=== PATIENT | male | born 1945 | race Caucasian/White ===

== ENCOUNTER 2016-09-21 09:45 | Outpatient (CLI) | payer MEDICARE, OTHER ==
[2016-09-21 14:09] LABS: EOSINOPHILS # (AUTO) 0.2 10^3/uL (0.0-0.7); LYMPHOCYTES # (AUTO) 1.4 10^3/uL (1.5-3.5); NEUTROPHILS # (AUTO) 4.1 10^3/uL (1.5-6.6)
[2016-09-21 14:12] LABS: BASOPHILS # (AUTO) 0.1 10^3/uL (0.0-0.1); BASOPHILS % (AUTO) 0.8 %; EOSINOPHILS % (AUTO) 2.8 %; HCT - HEMATOCRIT 46.8 % (42.0-52.0); HGB - HEMOGLOBIN 16.1 g/dL (14.0-18.0); LYMPHOCYTES % (AUTO) 20.2 %; MEAN CORPUSCULAR HEMOGLOBIN 30.7 pg (27.0-31.0); MEAN CORPUSCULAR HGB CONC 34.3 g/dL (32.0-36.0); MEAN CORPUSCULAR VOLUME 89.6 fL (80.0-94.0); MEAN PLATELET VOLUME 9.2 fL (7.4-11.4); MONOCYTES # (AUTO) 1.1 10^3/uL (0.0-1.0); MONOCYTES % (AUTO) 15.5 %; NEUTROPHILS % (AUTO) 60.7 %; NUCLEATED RED BLOOD CELLS AUTO 0.1 /100WBC; RED BLOOD COUNT 5.22 10^6/uL (4.70-6.10); UNCORRECTED WHITE BLOOD COUNT 6.8 x10^3/uL; WHITE BLOOD COUNT 6.8 x10^3/uL (4.8-10.8)
[2016-09-21 14:21] LABS: ALBUMIN/GLOBULIN RATIO 1.4 (1.0-2.2); BILIRUBIN,TOTAL 0.7 mg/dL (0.2-1.0); CALCIUM 9.6 mg/dL (8.5-10.3); CREATININE 1.1 mg/dL (0.6-1.2); POTASSIUM 3.9 mmol/L (3.5-5.0); TOTAL PROTEIN 6.7 g/dL (6.7-8.2)
== END 2016-09-21 09:46 | disposition home or self-care (01) ==
LOC: LAB.WCP 09:45
PROVIDERS: ATTEND Family Medicine
DX: M17.0 Bilateral primary osteoarthritis of knee (principal); I48.91 Unspecified atrial fibrillation
CPT/HCPCS: 36415; 80053; 85025; 87640

== ENCOUNTER 2016-09-23 12:37 | Outpatient (CLI) | payer MEDICARE, OTHER | END 2016-09-23 12:38 | disposition home or self-care (01) | LOC: DI 12:37 | PROVIDERS: ATTEND Family Medicine | DX: I48.91 Unspecified atrial fibrillation (principal); I51.7 Cardiomegaly; I35.1 Nonrheumatic aortic (valve) insufficiency | CPT/HCPCS: 93306 ==

== ENCOUNTER 2016-11-21 08:59 | Inpatient (IN) | payer MEDICARE, OTHER ==
[~2016-11-21 08:59] MED LIST: ceFAZolin 2 GM/50 ML 50 ML IV ONE
[2016-11-21] MEDS ORDERED: LACTATED RINGERS 1,000 ML IV ONE ×3 (09:30→13:56)
[2016-11-21] MEDS ORDERED: EPINEPHrine 1 MG/ML AMP IVP ONE (11:06)
[2016-11-21] MEDS ORDERED: ROPIVACAINE 0.5% PF 20 ML AMPULE SUBQ ONE (11:06)
[2016-11-21] MEDS ORDERED: KETOROLAC 15 MG/ML VIAL IVP ONE (11:06)
[2016-11-21] MEDS ORDERED: MORPHINE PF 5 MG/10 ML AMP SUBQ ONE (11:06)
[2016-11-21] MEDS ORDERED: BUPIVACAINE 0.5% PF 30 ML VIAL SUBQ ONE (11:08)
[2016-11-21] MEDS ORDERED: TRANEXAMIC ACID 1,000 MG/10 ML VIAL IV ONE (11:10)
[2016-11-21] MEDS ORDERED: ONDANSETRON 4 MG/2 ML VIAL IVP ONE (11:10)
[2016-11-21] MEDS ORDERED: MIDAZOLAM 2 MG/2 ML VIAL IVP ONE (11:10)
[2016-11-21] MEDS ORDERED: DEXAMETHASONE 4 MG/ML VIAL IVP ONE (11:10)
[2016-11-21] MEDS ORDERED: ACETAMINOPHEN 1,000 MG/100 ML 100 ML IV ONE (11:10)
[2016-11-21] MEDS ORDERED: fentaNYL 100 MCG/2 ML VIAL IVP ONE (11:10)
[2016-11-21] MEDS ORDERED: PROPOFOL 200 MG/20 ML VIAL IVP ONE (11:10)
--- NOTE | 2016-11-21 12:23 | OPERATIVE REPORT ---
Operative Report - General Admit Date: 11/21/16 Procedure Date: 11/21/16 Planned Procedure: Left TKA Pre-Op Diagnosis: DJD left knee Procedure Performed: Left Total Knee Arthroplasty Post Op Diagnosis: same - Procedure Note Primary Surgeon: thiago Anesthesia Provider: Jean Anesthesia Technique: Spinal Estimated Blood Loss (mL): 35 Drain/Tube Type: Hemovac
[2016-11-21] MEDS ORDERED: PROCHLORPERAZINE 10 MG/2 ML VIAL IVP PRN (12:24)
[2016-11-21] MEDS ORDERED: SODIUM CHLORIDE FLUSH 0.9% 10 ML SYRINGE IVP PRN (12:24)
[2016-11-21] MEDS ORDERED: ACETAMINOPHEN 325 MG TABLET PO PRN (12:24)
[2016-11-21] MEDS ORDERED: ONDANSETRON 4 MG/2 ML VIAL IVP PRN (12:24)
--- NOTE | 2016-11-21 13:08 | XRAY Report ---
TWO-VIEW LEFT KNEE: 11/21/2016 CLINICAL INDICATION: Postop. FINDINGS: Frontal and lateral views of the left knee demonstrate a left total knee replacement in pl [address]. Subcutaneous gas and suprapatellar drain are noted. There is no evidence of acute fracture or immediate hardware complication. IMPRESSION: EXPECTED POSTOPERATIVE APPEARANCE OF LEFT KNEE REPLACEMENT. JOB #: [id number] EXT JOB #:[id number]
--- NOTE | 2016-11-21 13:35 | OPERATIVE REPORT ---
DATE OF SURGERY: 11/21/2016 00:00:00 PREOPERATIVE DIAGNOSIS: Left knee osteoarthritis. POSTOPERATIVE DIAGNOSIS: Left knee osteoarthritis. NAME OF PROCEDURE: Left total knee replacement arthroplasty. SURGEON: Lindsay Robertson MD ANESTHESIA: Lilly, Antonio Pena. INDICATIONS FOR SURGERY: The patient is a 71-year-old male with progressive osteoarthritis involving both knees but presently more painful in the left than the right, and patient has failed conservative care and desires total knee arthroplasty. DESCRIPTION OF OPERATIVE PROCEDURE: The patient was taken to the operating room. He was given a spina l anesthetic. He was placed in a supine position on the OR table with padding in place and bolsters t o position his knee. A tourniquet was placed high on his thigh. After sterile prep and drape, a timeo ut was held, and then, the tourniquet was inflated to 300 mmHg. The patient's knee was approached thr ough a curved medial incision and a medial parapatellar incision with reflection of the patella later ally and exposure of the distal femur and tibia where osteophytes were removed from both surfaces, th e ACL excised and medial and lateral meniscus removed. The patient's knee was prepared for distal fem oral cut by placing an intramedullary dimitris and the cutting block and then cutting the distal femur. Fo llowing this, a sizing block was applied, and the patient sized to a size 10 femoral Persona componen t. A 4-in-1 cutting block was applied and the cuts made. The tibia was then exposed, and the external alignment tower was applied and adjusted for overall alignment for slope and for rotation. The cut w as made on the proximal tibia with retractors positioned to protect soft tissues. Following this, the proximal tibia was sized for implantation of a Persona stem size F tibial tray from which a trial re duction was performed, choosing a 13 mm height poly. The patella was measured, resected and sized for a patellar component of 32 mm diameter 8.5 mm thickness medialized. All trial components were insert ed, and the knee was stable through a range of motion, and the patella tracked well. Components were removed, and the implantable Persona knee components were brought into the field, implanting with leo ent first the tibial tray, the stemmed size F tibial tray, followed by insertion of the Persona cruci ate retaining femur standard size 10 left and then finally inserting the poly insert, which was a med ial congruent 13 mm height insert, and then, the patella was cemented in place. All excess cement was removed, and the cement was allowed to harden. The patient's knee remained very stable, and the knee was flushed thoroughly. Closure was over a drain utilizing FiberWire in the retinaculum, Vicryl laye rs in subcutaneous tissue and Monocryl closure of skin. Sterile dressings were applied. The patient w as placed onto a hospital bed and taken to the recovery room in stable condition. ESTIMATED BLOOD LOSS: Minimal. COMPLICATIONS: None. SPONGE AND NEEDLE COUNTS: Correct. JOB #: [id number] EXT JOB #:[id number]
[2016-11-21] MEDS: WARFARIN 5 MG TABLET PO SCH (14:40)
[2016-11-21] MEDS: SODIUM CHLORIDE 0.45% 1,000 ML IV SCH (14:40)
[2016-11-21] MEDS: SODIUM CHLORIDE FLUSH 0.9% 10 ML SYRINGE IVP SCH ×2 (14:41→21:35)
[2016-11-21] MEDS: ceFAZolin 2 GM/50 ML 50 ML IV SCH (15:42)
[2016-11-21] MEDS: oxyCOD/ACETAMIN 5 MG/325 MG TABLET PO PRN ×2 (18:01→21:33)
[2016-11-21] MEDS: METOPROLOL TARTRATE 25 MG TABLET PO SCH (21:31)
[2016-11-22] MEDS: ceFAZolin 2 GM/50 ML 50 ML IV SCH (00:25)
[2016-11-22] MEDS: SODIUM CHLORIDE 0.45% 1,000 ML IV SCH (01:23)
[2016-11-22] MEDS: oxyCOD/ACETAMIN 5 MG/325 MG TABLET PO PRN ×6 (01:23→21:33)
[2016-11-22] MEDS: SODIUM CHLORIDE FLUSH 0.9% 10 ML SYRINGE IVP SCH ×3 (05:24→20:05)
[2016-11-22 05:36] LABS: CALCIUM 8.5 mg/dL (8.5-10.3); CREATININE 1.1 mg/dL (0.6-1.2); POTASSIUM 4.3 mmol/L (3.5-5.0)
[2016-11-22 05:43] LABS: HCT - HEMATOCRIT 42.8 % (42.0-52.0); HGB - HEMOGLOBIN 14.4 g/dL (14.0-18.0)
--- NOTE | 2016-11-22 07:35 | PROVIDER PROGRESS NOTE ---
Subjective - General Admit Date: 11/21/16 Procedure Date: 11/21/16 Post Op Days: 1 Procedure Performed: Left Total Knee Arthroplasty - Review of Systems Wound/Incisions: positive: Dressing dry and intact Drain Type: Hemovac D/c General: positive: No symptoms Psychiatric: positive: No symptoms Objective - Patient Data Reviewed Vital Signs: Yes Vital Signs: Vital Signs x48h Temp Pulse Resp BP Pulse Ox 11/22/16 07:23 36.8 C 63 18 138/78 H 94 11/22/16 04:40 36.6 C 70 16 127/70 94 11/21/16 23:45 36.9 C 74 18 130/68 94 Weight: Weight 11/20/16 11/21/16 11/22/16 23:59 23:59 23:59 Weight (kg) 120 kg Intake & Output: Intake and Output Totals x24h 11/20/16 11/21/16 11/22/16 23:59 23:59 23:59 Intake Total 3476 1129 Output Total 340 560 Balance 3136 569 - Lab Results Lab Results: 11/22/16 05:20 11/22/16 05:20 Other Lab Results: Lab Results x24hrs 11/22/16 11/22/16 11/21/16 Range/Units 05:20 05:20 10:14 Hgb 14.4 (14.0-18.0) g/dL Hct 42.8 (42.0-52.0) % Whole Blood INR 1.1 (0.8-1.2) Sodium 136 (135-145) mmol/L Potassium 4.3 (3.5-5.0) mmol/L Chloride 101 (101-111) mmol/L Carbon Dioxide 27 (21-32) mmol/L Anion Gap 8.0 (6-13) BUN 20 (6-20) mg/dL Creatinine 1.1 (0.6-1.2) mg/dL Estimated GFR (MDRD) 66 L (>89) Glucose 136 H (70-100) mg/dL Calcium 8.5 (8.5-10.3) mg/dL - Imaging Results Radiology Imaging: positive: EMP read indepedently - Current Medications Current Medications: Current Medications Generic Name Dose Route Start Last Admin Trade Name Freq PRN Reason Stop Dose Admin Sodium Chloride 1,000 mls @ 100 mls/hr 11/21/16 13:00 11/22/16 01:23 Normal Saline 0.45% IV 100 mls/hr .Q10H HENRY Administration Metoprolol Tartrate 12.5 mg 11/21/16 21:00 11/21/16 21:31 Lopressor PO 12.5 mg BID HENRY Administration Oxycodone/Acetaminophen 1 tab 11/21/16 12:24 11/22/16 05:24 Percocet 5 Mg/325 Mg PO 1 tab Q4HR PRN Administration PAIN Sodium Chloride 10 ml 11/21/16 14:00 11/22/16 05:24 Normal Saline Flush 0.9% IVP Not Given Q8HR HENRY Warfarin Sodium 5 mg 11/21/16 13:00 11/21/16 14:40 Coumadin PO 5 mg DAILY HENRY Administration - Physical Exam Wound/Incisions: positive: Dressing dry and intact Extremities: positive: Joint swelling Neurologic/Psychiatric: positive: Motor nml, Sensation nml, Mood/affect nml Impression/Plan - Problem List Problem List: POD #1 Pt is doing well with good pain control Plan to advance with PT today.
[2016-11-22] MEDS ORDERED: SODIUM CHLORIDE 0.45% 1,000 ML IV SCH (08:34)
[2016-11-22] MEDS: ATORVASTATIN 10 MG TABLET PO SCH (08:54)
[2016-11-22] MEDS: WARFARIN 5 MG TABLET PO SCH (08:55)
[2016-11-22] MEDS: hydroCHLOROthiazide 25 MG TABLET PO SCH (08:55)
[2016-11-22] MEDS: METOPROLOL TARTRATE 25 MG TABLET PO SCH ×2 (08:55→21:34)
[2016-11-22] MEDS: LISINOPRIL 20 MG TABLET PO SCH (09:07)
[2016-11-22] MEDS: ENOXAPARIN 40 MG/0.4 ML SYRINGE SUBQ SCH (09:07)
[2016-11-22] MEDS ORDERED: POLYETHYLENE GLYCOL 3350 17 GM PACKET ONE (16:54)
[2016-11-22] MEDS: HYDROmorphone 1 MG/ML SYRINGE IVP PRN (20:05)
[2016-11-23] MEDS: HYDROmorphone 1 MG/ML SYRINGE IVP PRN ×2 (01:21→11:29)
[2016-11-23] MEDS: oxyCOD/ACETAMIN 5 MG/325 MG TABLET PO PRN ×4 (02:21→17:25)
[2016-11-23 06:02] LABS: INR 1.5 (0.8-1.2); PT - PROTHROMBIN TIME 16.8 secs (9.9-12.6)
[2016-11-23] MEDS: SODIUM CHLORIDE FLUSH 0.9% 10 ML SYRINGE IVP SCH ×3 (06:14→20:25)
[2016-11-23] MEDS: ATORVASTATIN 10 MG TABLET PO SCH (08:27)
[2016-11-23] MEDS: ENOXAPARIN 40 MG/0.4 ML SYRINGE SUBQ SCH (08:27)
[2016-11-23] MEDS: METOPROLOL TARTRATE 25 MG TABLET PO SCH ×2 (08:28→20:28)
[2016-11-23] MEDS: hydroCHLOROthiazide 25 MG TABLET PO SCH (08:28)
[2016-11-23] MEDS: WARFARIN 5 MG TABLET PO SCH (08:28)
[2016-11-23] MEDS: LISINOPRIL 20 MG TABLET PO SCH ×2 (08:28→20:23)
--- NOTE | 2016-11-23 10:50 | PROVIDER PROGRESS NOTE ---
Subjective - General Admit Date: 11/21/16 Procedure Date: 11/21/16 Post Op Days: 2 Procedure Performed: Left Total Knee Arthroplasty - Review of Systems Wound/Incisions: positive: Dressing dry and intact Drain Type: Hemovac D/c General: positive: No symptoms Psychiatric: positive: No symptoms Objective - Patient Data Reviewed Vital Signs: Yes Vital Signs: Vital Signs x48h Temp Pulse Resp BP BP Pulse Ox 11/23/16 08:28 124/59 L 11/23/16 07:23 37.4 C 70 16 124/59 L 92 11/23/16 04:00 36.5 C 74 16 131/69 H 94 Weight: Weight 11/21/16 11/22/16 11/23/16 23:59 23:59 23:59 Weight (kg) 120 kg Intake & Output: Intake and Output Totals x24h 11/21/16 11/22/16 11/23/16 23:59 23:59 23:59 Intake Total 3476 2819 490 Output Total 340 2035 125 Balance 3136 784 365 - Lab Results Lab Results: 11/22/16 05:20 11/22/16 05:20 Other Lab Results: Lab Results x24hrs 11/23/16 Range/Units 05:36 PT 16.8 H (9.9-12.6) secs INR 1.5 H (0.8-1.2) - Current Medications Current Medications: Current Medications Generic Name Dose Route Start Last Admin Trade Name Freq PRN Reason Stop Dose Admin Atorvastatin Calcium 20 mg 11/22/16 09:00 11/23/16 08:27 Lipitor PO 20 mg DAILY HENRY Administration Enoxaparin Sodium 40 mg 11/22/16 09:00 11/23/16 08:27 Lovenox SUBQ 40 mg DAILY HENRY Administration Hydrochlorothiazide 25 mg 11/22/16 09:00 11/23/16 08:28 Hydrodiuril PO 25 mg DAILY HENRY Administration Hydromorphone HCl 1 mg 11/21/16 12:24 11/23/16 01:21 Dilaudid Inj IVP 1 mg Q2HR PRN Administration Breakthrough Pain Lisinopril 20 mg 11/22/16 09:00 11/23/16 08:28 Zestril PO 20 mg DAILY HENRY Administration Metoprolol Tartrate 12.5 mg 11/21/16 21:00 11/23/16 08:28 Lopressor PO 12.5 mg BID HENRY Administration Oxycodone/Acetaminophen 1 tab 11/21/16 12:24 11/23/16 10:15 Percocet 5 Mg/325 Mg PO 1 tab Q4HR PRN Administration PAIN Sodium Chloride 10 ml 11/21/16 14:00 11/23/16 06:14 Normal Saline Flush 0.9% IVP 10 ml Q8HR HENRY Administration Warfarin Sodium 5 mg 11/21/16 13:00 11/23/16 08:28 Coumadin PO 5 mg DAILY HENRY Administration
[2016-11-23] MEDS: HYDROmorphone 2 MG TABLET PO PRN ×2 (13:12→22:28)
[2016-11-23] MEDS: SENNA 8.6 MG TABLET PO SCH (20:24)
[2016-11-24] MEDS: oxyCOD/ACETAMIN 5 MG/325 MG TABLET PO PRN ×4 (01:50→19:35)
[2016-11-24] MEDS: SENNA 8.6 MG TABLET PO SCH ×5 (01:52→13:51)
[2016-11-24] MEDS: SODIUM CHLORIDE FLUSH 0.9% 10 ML SYRINGE IVP SCH ×3 (06:41→19:35)
[2016-11-24] MEDS ORDERED: BISACODYL 10 MG SUPP PR PRN (08:14)
[2016-11-24] MEDS ORDERED: SOAP SUDS ENEMA 1 EACH RC PRN (08:18)
--- NOTE | 2016-11-24 08:18 | PROVIDER PROGRESS NOTE ---
Subjective - General Admit Date: 11/21/16 Procedure Date: 11/21/16 Post Op Days: 3 Procedure Performed: Left Total Knee Arthroplasty - Review of Systems Wound/Incisions: positive: Dressing dry and intact Drain Type: Hemovac D/c General: positive: No symptoms Musculoskeletal: positive: Joint swelling Psychiatric: positive: No symptoms Objective - Patient Data Reviewed Vital Signs: Yes Vital Signs: Vital Signs x48h Temp Pulse Resp BP Pulse Ox 11/24/16 05:41 37.2 C 94 16 161/73 H 92 11/24/16 00:22 37.4 C 96 18 150/79 H 89 L Intake & Output: Intake and Output Totals x24h 11/22/16 11/23/16 11/24/16 23:59 23:59 23:59 Intake Total 2819 1430 Output Total 2035 1500 1200 Balance - Lab Results Lab Results: 11/22/16 05:20 11/22/16 05:20 - Current Medications Current Medications: Current Medications Generic Name Dose Route Start Last Admin Trade Name Wood PRN Reason Stop Dose Admin Atorvastatin Calcium 20 mg 11/22/16 09:00 11/23/16 08:27 Lipitor PO 20 mg DAILY HENRY Administration Hydrochlorothiazide 25 mg 11/22/16 09:00 11/23/16 08:28 Hydrodiuril PO 25 mg DAILY HENRY Administration Hydromorphone HCl 2 mg 11/23/16 12:59 11/23/16 22:28 Dilaudid PO 2 mg Q4HR PRN Administration Severe Pain Lisinopril 20 mg 11/22/16 09:00 11/23/16 20:23 Zestril PO 20 mg DAILY HENRY Administration Metoprolol Tartrate 12.5 mg 11/21/16 21:00 11/23/16 20:28 Lopressor PO 12.5 mg BID HENRY Administration Oxycodone/Acetaminophen 1 tab 11/21/16 12:24 11/24/16 01:50 Percocet 5 Mg/325 Mg PO 1 tab Q4HR PRN Administration PAIN Senna 17.2 - 25.8 mg 11/23/16 20:00 11/24/16 01:52 Senokot PO 11/24/16 14:01 17.2 mg Q6H HENRY Administration Sodium Chloride 10 ml 11/21/16 12:24 11/23/16 11:30 Normal Saline Flush 0.9% IVP 10 ml PRN PRN Administration NEEDED PER PROVIDER ORDERS Sodium Chloride 10 ml 11/21/16 14:00 11/24/16 06:41 Normal Saline Flush 0.9% IVP 10 ml Q8HR HENRY Administration Warfarin Sodium 5 mg 11/21/16 13:00 11/23/16 08:28 Coumadin PO 5 mg DAILY HENRY Administration - Physical Exam Wound/Incisions: positive: Dressing dry and intact Eyes Bilateral: positive: Other (fatigue, not painful but "wiped out") Skin: positive: No rash, Warm, Dry Impression/Plan - Problem List Problem List: POD #3 Pt is having complaints of being fatigued. Wound healing is OK, but slight increased knee swelling probably due to duo of Lovenox/Coumadin. Plan to work with patient with PT. Transition to oral meds only Bowel Care and BM today!
--- NOTE | 2016-11-24 08:28 | Discharge Plan ---
Discharge Plan Diet: Regular Activity Restrictions: Wt Bearing as Tolerated Shower Restrictions: Yes (keep left knee dry) Driving Restrictions: Yes (no driving) Assistance Devices: Walker Weight Bearing: Full Weight No Smoking: If you smoke, Please STOP! Call for help. <Lindsay Robertson - Last Filed: 11/24/16 08:23> Diet: Regular Activity Restrictions: Wt Bearing as Tolerated Shower Restrictions: Yes (Keep Left Knjee Dry) Driving Restrictions: Yes (No Driving) Assistance Devices: Walker, Other (Gait Belt) Weight Bearing: Full Weight No Smoking: If you smoke, Please STOP! Call for help. <Drake Cooney - Last Filed: 11/26/16 12:46> Disposition: 03 SNF DC/Xfer Condition: Good Prescriptions: oxyCODONE/ACET 5/325 [Percocet 5 mg/325 mg] 1 tab PO Q4HR PRN #30 tablet PRN Reason: Pain Docusate Sodium 250Mg Capsule [Colace 250Mg Capsule] 250 - 500 mg PO DAILY #20 capsule Senna [Senokot] 17.2 - 25.8 mg PO Q6H #30 tablet Additional Instructions or Follow Up instructions: Orthopedic clinic in one week Follow-up with: Catrahcita Navarro DO [Primary Care Provider] - Lindsay Robertson MD [Provider Admit Priv/Credential] -
[2016-11-24] MEDS: ATORVASTATIN 10 MG TABLET PO SCH (10:05)
[2016-11-24] MEDS: DOCUSATE SODIUM 250 MG CAPSULE PO SCH (10:06)
[2016-11-24] MEDS: hydroCHLOROthiazide 25 MG TABLET PO SCH (10:07)
[2016-11-24] MEDS: WARFARIN 5 MG TABLET PO SCH (10:09)
[2016-11-24] MEDS: POLYETHYLENE GLYCOL 3350 17 GM PACKET PO SCH (10:09)
[2016-11-24] MEDS: METOPROLOL TARTRATE 25 MG TABLET PO SCH ×2 (10:16→21:50)
[2016-11-24 10:50] LABS: BASOPHILS % (AUTO) 0.3 %; EOSINOPHILS % (AUTO) 0.4 %; HCT - HEMATOCRIT 39.2 % (42.0-52.0); HGB - HEMOGLOBIN 13.4 g/dL (14.0-18.0); LYMPHOCYTES # (AUTO) 0.9 10^3/uL (1.5-3.5); LYMPHOCYTES % (AUTO) 8.9 %; MEAN CORPUSCULAR HEMOGLOBIN 30.2 pg (27.0-31.0); MEAN CORPUSCULAR HGB CONC 34.2 g/dL (32.0-36.0); MEAN CORPUSCULAR VOLUME 88.4 fL (80.0-94.0); MEAN PLATELET VOLUME 9.4 fL (7.4-11.4); MONOCYTES # (AUTO) 0.7 10^3/uL (0.0-1.0); MONOCYTES % (AUTO) 6.4 %; NEUTROPHILS # (AUTO) 8.7 10^3/uL (1.5-6.6); RED BLOOD COUNT 4.44 10^6/uL (4.70-6.10); RED CELL DISTRIBUTION WIDTH 13.7 % (12.0-15.0); UNCORRECTED WHITE BLOOD COUNT 10.3 x10^3/uL; WHITE BLOOD COUNT 10.3 x10^3/uL (4.8-10.8)
[2016-11-24 10:56] LABS: INR 1.6 (0.8-1.2); PT - PROTHROMBIN TIME 18.2 secs (9.9-12.6)
[2016-11-24 10:59] LABS: CREATININE 1.1 mg/dL (0.6-1.2); POTASSIUM 3.5 mmol/L (3.5-5.0)
[2016-11-24] MEDS: LISINOPRIL 20 MG TABLET PO SCH (19:35)
[2016-11-25] MEDS: oxyCOD/ACETAMIN 5 MG/325 MG TABLET PO PRN ×5 (02:31→21:04)
[2016-11-25] MEDS: SODIUM CHLORIDE FLUSH 0.9% 10 ML SYRINGE IVP SCH ×3 (06:39→20:15)
[2016-11-25] MEDS: POLYETHYLENE GLYCOL 3350 17 GM PACKET PO SCH (08:48)
[2016-11-25] MEDS: ATORVASTATIN 10 MG TABLET PO SCH (08:51)
[2016-11-25] MEDS: hydroCHLOROthiazide 25 MG TABLET PO SCH (08:52)
[2016-11-25] MEDS: DOCUSATE SODIUM 250 MG CAPSULE PO SCH (08:52)
[2016-11-25] MEDS: METOPROLOL TARTRATE 25 MG TABLET PO SCH ×2 (09:06→20:14)
[2016-11-25] MEDS: WARFARIN 5 MG TABLET PO SCH (09:07)
[2016-11-25] MEDS: SENNA 8.6 MG TABLET PO SCH (09:07)
[2016-11-25] MEDS: LISINOPRIL 20 MG TABLET PO SCH (20:15)
[2016-11-26] MEDS: oxyCOD/ACETAMIN 5 MG/325 MG TABLET PO PRN ×4 (02:12→14:45)
[2016-11-26] MEDS: SODIUM CHLORIDE FLUSH 0.9% 10 ML SYRINGE IVP SCH ×2 (06:00→12:56)
[2016-11-26] MEDS: POLYETHYLENE GLYCOL 3350 17 GM PACKET PO SCH (08:31)
[2016-11-26] MEDS: METOPROLOL TARTRATE 25 MG TABLET PO SCH (08:31)
[2016-11-26] MEDS: hydroCHLOROthiazide 25 MG TABLET PO SCH (08:32)
[2016-11-26] MEDS: ATORVASTATIN 10 MG TABLET PO SCH (08:32)
[2016-11-26] MEDS: WARFARIN 5 MG TABLET PO SCH (08:32)
[2016-11-26] MEDS: SENNA 8.6 MG TABLET PO SCH (08:32)
[2016-11-26] MEDS: DOCUSATE SODIUM 250 MG CAPSULE PO SCH (08:33)
--- NOTE | 2016-11-26 12:20 | PROVIDER PROGRESS NOTE ---
Subjective - Prog Note Date Prog Note Date: 11/25/16 Prog Note Time: 11:00 - Subjective Pt reports feeling: No change (More pain after increased activity yesterday. Nurse notes increaseed erythema and swelling about Left Lower Leg.) Objective - Vital Signs/Intake & Output Reviewed Vital Signs: Yes Vital Signs: Vital Signs x48h Temp Pulse Resp BP BP Pulse Ox 11/26/16 08:31 151/87 H 11/26/16 07:59 37.0 C 93 18 151/87 H 96 11/26/16 05:21 36.6 C 85 16 141/72 H 94 Intake & Output: Intake & Output 11/23/16 11/24/16 11/25/16 11/26/16 23:59 23:59 23:59 23:59 Intake Total 2506 262 8829 600 Output Total 1500 1200 900 Balance -70 -390 730 600 - Objective General Appearance: positive: Alert, Mild distress Eyes Bilateral: positive: Normal inspection ENT: positive: ENT inspection nml Neck: positive: Nml inspection Respiratory: positive: No respiratory distress, Breath sounds nml Cardiovascular: positive: No murmur Peripheral Pulses: 0 Dorsalis pedis (L), 0 Posterior tibialis (L) Abdomen: positive: Non-tender, Nml bowel sounds, No distention. negative: Guarding Back: positive: Nml inspection Skin: positive: Color nml, No rash, Other (:eft :ower :eg with increased erythema. Several small intact bullae around kne incision. Scant serous drainage.) Extremities: negative: Pedal edema, Calf tenderness, Ever's sign/cords Neurologic/Psychiatric: positive: Motor nml, Sensation nml, Mood/affect nml - Lab Results Fish Bones: 11/24/16 10:37 11/24/16 10:37 Assessment/Plan - Problem List (2) Aftercare following left knee joint replacement surgery Impression: Assessment: Increased swelling around Left knee is concerning. Plan: 1. Elevate Left Lower Extremity above heart. 2. Ice. 3. Continue PT. 4. Will delay transfer to SNF for 24 hours to monitor swelling and clionical condition.
--- NOTE | 2016-11-26 12:49 | PROVIDER PROGRESS NOTE ---
Subjective - Prog Note Date Prog Note Date: 11/26/16 Prog Note Time: 12:00 - Subjective Pt reports feeling: Improved (Significantly less pain and swelling this morning. Denies SOB, chest pain.) Objective - Vital Signs/Intake & Output Reviewed Vital Signs: Yes Vital Signs: Vital Signs x48h Temp Pulse Resp BP BP Pulse Ox 11/26/16 08:31 151/87 H 11/26/16 07:59 37.0 C 93 18 151/87 H 96 11/26/16 05:21 36.6 C 85 16 141/72 H 94 Intake & Output: Intake & Output 11/23/16 11/24/16 11/25/16 11/26/16 23:59 23:59 23:59 23:59 Intake Total 9800 919 7528 600 Output Total 1500 1200 900 Balance -70 -390 730 600 - Objective General Appearance: positive: No acute distress, Alert Eyes Bilateral: positive: Normal inspection ENT: positive: ENT inspection nml Neck: positive: Nml inspection Respiratory: positive: No respiratory distress, Breath sounds nml Cardiovascular: positive: Regular rate & rhythm Peripheral Pulses: 2+ Dorsalis pedis (L), 2+ Posterior tibialis (L) Abdomen: positive: Non-tender, Nml bowel sounds, No distention. negative: Guarding Back: positive: Nml inspection Skin: positive: Color nml, No rash, Warm, Dry, Other (Significantly less swelling and erythema surrounding and below Left Knee. Silver dressing intact.) Extremities: negative: Pedal edema, Calf tenderness, Ever's sign/cords - Lab Results Fish Bones: 11/24/16 10:37 11/24/16 10:37 Assessment/Plan - Problem List (2) Aftercare following left knee joint replacement surgery Impression: Impression: Stab;e status post Left Total Knee Arthroplasty Plan: 1. Trransfer to [facility].\ 2. f/u with Dr. Robertson, in one week.
[2016-11-26 13:04] VITALS: BP 130/84
--- NOTE | 2016-11-27 16:39 | DISCHARGE SUMMARY ---
DATE OF ADMISSION: 11/21/2016 DATE OF DISCHARGE: 11/26/2016 ADMISSION DIAGNOSIS: Left knee osteoarthritis. OPERATIVE PROCEDURE: On 11/21/2016, a left total knee replacement arthroplasty. REASON FOR ADMISSION: The patient is a 71-year-old male with increasing left knee osteoarthritis. Wit h the patient having constant knee pain and limitation in activities and function, he desires total k nee arthroplasty. The patient has been preoperatively evaluated by his primary care provider and read ied for surgery. His medications and his physical exam and history are delineated in his admission no te. HOSPITAL COURSE: The patient was admitted and he underwent surgery on 11/21/2016. The patient tolerat ed the surgery well. In the postoperative period, was placed on the floor, receiving standard care fo r total knee arthroplasty including IV antibiotics, DVT prophylaxis in his case with both bridge ther apy with Lovenox and resumption of his normal Coumadin dosing and physical therapy. The patient progr essed fairly well, but had quite a bit of knee pain and swelling in the postoperative course and this extended his stay and caused him increased pain and diminished mobility with therapy. It was felt th at he would best be transferred to a assisted facility for further rehabilitation and observat ion, and this was put into play on 11/26/2016 when he was discharged to a care center. At this point, his wound was healing well. He had bruising and swelling of his leg consistent with bridge therapy f or chronic atrial fibrillation and deep venous thrombosis prophylaxis. The patient was to be seen in the clinical office in 1 week and to be on Percocet for pain and laxatives for bowel control. JOB #: [id number] EXT JOB #:[id number]
== END 2016-11-26 15:10 | DRG 470 ==
LOC: MS2 08:59
PROVIDERS: ADMIT Orthopaedic Surgery; ATTEND Orthopaedic Surgery
PROC: 0SRD0J9 Replacement of Left Knee Joint with Synthetic Substitute, Cemented, Open Approach (ICD-10-PCS; principal; 2016-11-21 10:15)
DX: M17.12 Unilateral primary osteoarthritis, left knee (principal); Z68.41 Body mass index [BMI] 40.0-44.9, adult; I48.91 Unspecified atrial fibrillation; Z79.01 Long term (current) use of anticoagulants; M25.462 Effusion, left knee; I10 Essential (primary) hypertension; G47.33 Obstructive sleep apnea (adult) (pediatric); E66.9 Obesity, unspecified; E78.5 Hyperlipidemia, unspecified; Z87.11 Personal history of peptic ulcer disease; Z87.891 Personal history of nicotine dependence
CPT/HCPCS: 36415; 80048; 85014; 85018; 85025; 85610

== ENCOUNTER 2016-11-27 10:40 | Outpatient (CLI) | payer MEDICARE, OTHER ==
[2016-11-27 13:34] LABS: BILIRUBIN,URINE NEGATIVE (NEGATIVE)
[2016-11-27 13:47] LABS: UA w/ MICROSCOPIC CHARGE YES
[2016-11-27 13:48] LABS: UR CULTURE IF IND NOT INDICATED; WBC,URINE 0-3 /HPF (0-3)
== END 2016-11-27 10:41 | disposition home or self-care (01) ==
LOC: LAB.R 10:40
DX: N39.0 Urinary tract infection, site not specified (principal)
CPT/HCPCS: 81001; 81003; 87086

== ENCOUNTER 2016-11-27 11:23 | Outpatient (CLI) | payer MEDICARE, OTHER | END 2016-11-27 11:24 | disposition critical access hospital (66) | LOC: EMS 11:23 | PROVIDERS: ATTEND Surgery | DX: M25.562 Pain in left knee (principal); Z96.652 Presence of left artificial knee joint | CPT/HCPCS: A0425; A0429 ==

== ENCOUNTER 2016-11-27 11:30 | Emergency (ER) | payer MEDICARE, OTHER ==
--- NOTE | 2016-11-27 13:54 | ED Physician Documentation ---
PD HPI LOWER EXT INJURY - Stated complaint Stated Complaint: L KNEE PX - Chief complaint Chief Complaint: Wound - History obtained from History obtained from: Patient - History of Present Illness PD HPI LOW EXT INJURY LOCATION: Left, Knee Type of injury: Other (surgery for knee replacement 5 days ago and discharged few days ago to [facility]. Noted bruising color and swelling the past 3 days. Trying to use knee with walker as directed. Pain increased with redness.) Timing - onset: How many days ago (5) Timing - details: Gradual onset (he did not have the bruising and swelling right after surgery, developed the past few days with initial use of the knee and walking.) Improved by: No: Rest Worsened by: Moving, Palpating Associated symptoms: Swelling, Discolored. No: Weakness, Numbness Contributing factors: Anticoagulated Recently seen: Surgery Review of Systems Constitutional: denies: Fever, Chills Cardiac: denies: Chest pain / pressure, Palpitations Respiratory: denies: Dyspnea, Cough GI: denies: Nausea, Vomiting PD PAST MEDICAL HISTORY - Past Medical History Past Medical History: Yes Cardiovascular: Hypertension, High cholesterol, Atrial fibrillation Respiratory: Sleep apnea, CPAP use Endocrine/Autoimmune: None GI: Ulcers, Chronic diarrhea : None HEENT: None Psych: None Musculoskeletal: Osteoarthritis Derm: None - Past Surgical History General: Other - Present Medications Home Medications: Ambulatory Orders Medication Instructions Recorded Confirmed Lisinopril/Hydrochlorothiazide 1 tab PO DAILY 11/08/16 11/27/16 [Lisinopril-Hctz 20-25 mg Tab] Metoprolol Tartrate 12.5 mg PO BID 11/08/16 11/27/16 Simvastatin 40 mg PO DAILY 11/08/16 11/27/16 Warfarin Sodium 5 mg PO DAILY 11/08/16 11/27/16 Docusate Sodium 250Mg Capsule 250 - 500 mg PO DAILY #20 capsule 11/24/16 [Colace 250Mg Capsule] Senna [Senokot] 17.2 - 25.8 mg PO Q6H #30 tablet 11/24/16 11/27/16 hydroCHLOROthiazide [Hydrodiuril] 25 mg PO DAILY tablet 11/24/16 11/27/16 oxyCODONE/ACET 5/325 [Percocet 5 1 tab PO Q4HR PRN #30 tablet 11/24/16 11/27/16 mg/325 mg] - Allergies Allergies/Adverse Reactions: Allergies Allergy/AdvReac Type Severity Reaction Status Date / Time No Known Drug Allergies Allergy Verified 11/27/16 14:08 - Social History Does the pt smoke?: No Smoking Status: Never smoker PD ED PE NORMAL - Vitals Vital signs reviewed: Yes - General General: Alert and oriented X 3, No acute distress, Well developed/nourished - Neck Neck: Supple, no meningeal sign, No adenopathy - Cardiac Cardiac: RRR, No murmur - Respiratory Respiratory: Clear bilaterally - Abdomen Abdomen: Soft, Non tender - Derm Derm: Normal color, Warm and dry - Extremities Extremities: No calf tenderness / cord, Other (left knee with swelling and effusion, redness and warmth, with bruising color (c/w hemarthrosis). Some edema in lower leg. ) - Neuro Neuro: No motor deficit, No sensory deficit Results - Vitals Vitals: Oxygen O2 Source Room air - Labs Labs: Laboratory Tests 11/27/16 11/27/16 11/27/16 12:45 14:31 14:31 WBC 13.0 H RBC 4.64 L Hgb 14.0 Hct 40.9 L MCV 88.2 MCH 30.2 MCHC 34.3 RDW 13.8 Plt Count 254 MPV 8.8 Neut # BOBBIN HANDLER Lymph # BOBBIN HANDLER [place] # BOBBIN HANDLER Eos # BOBBIN HANDLER Baso # BOBBIN HANDLER Absolute Nucleated RBC BOBBIN [employer]ER Band Neuts % (Manual) Not Reportable Nucleated RBCs BOBBIN [employer]LER Differential Comment MANUAL=AUTO DIFF Platelet Estimate NORMAL (130-450,000) Platelet Morphology NORMAL APPEARANCE RBC Morph Micro Appear NORMAL APPEARANCE ESR 29 H Whole Blood INR 2.1 H C-Reactive Protein 11/27/16 14:31 WBC RBC Hgb Hct MCV MCH MCHC RDW Plt Count MPV Neut # Lymph # [place] # Eos # Baso # Absolute Nucleated RBC Band Neuts % (Manual) Nucleated RBCs Differential Comment Platelet Estimate Platelet Morphology RBC Morph Micro Appear ESR Whole Blood INR C-Reactive Protein 13.3 H PD MEDICAL DECISION MAKING - ED course Complexity details: considered differential (inflammatory redness due to hematoma vs early infection. Will discuss with Dr. Robertson. ), d/w gift consultant ( Dr. Robertson came to ED to see the patient; opted not to aspirate it and will see him in office in 1-2 days. ) Departure - Departure Disposition: 01 Home, Self Care Clinical Impression: Postoperative pain of left knee, Hematoma, Status post left knee replacement Condition: Stable Record reviewed to determine appropriate education?: Yes Instructions: ED Hematoma Follow-Up: Lindsay Robertson MD [Provider Admit Priv/Credential] - Comments: Continue usual medications. Try to mobilize the knee as much as able based on comfort. Warm moist towels to it a few times a day to help reduce the hematoma around the joint. Follow-up with Dr. Robertson later this week. Discharge Date/Time: 11/27/16 16:14
--- NOTE | 2016-11-27 14:05 | Ultrasound Report ---
LEFT LOWER EXTREMITY VENOUS SONOGRAM: 11/27/2016 HISTORY: Left lower extremity pain status post knee surgery. TECHNIQUE: Real-time scanning of the left lower extremity veins using standard vascular technique. The veins imaged are the left common femoral, deep femoral , femoral, popliteal, posterior tibial, and peroneal veins. FINDINGS: All veins demonstrate normal flow, compressibility, phasicity, and augmentation. No evidence of deep venous thrombosis is seen. IMPRESSION: NEGATIVE LEFT LOWER EXTREMITY VENOUS SONOGRAM. NO FINDINGS OF DEEP VENOUS THROMBOSIS. JOB #: [id number] EXT JOB #: [id number] [facility]
[2016-11-27] MEDS ORDERED: oxyCOD/ACETAMIN 5 MG/325 MG TABLET PO STA (14:34)
[2016-11-27] MEDS ORDERED: oxyCOD/ACETAMIN 5 MG/325 MG TABLET PO ONE (14:46)
[2016-11-27 14:52] LABS: BASOPHILS % (AUTO) 0.5 %; EOSINOPHILS % (AUTO) 1.2 %; HCT - HEMATOCRIT 40.9 % (42.0-52.0); LYMPHOCYTES % (AUTO) 10.4 %; MEAN CORPUSCULAR HEMOGLOBIN 30.2 pg (27.0-31.0); MEAN CORPUSCULAR HGB CONC 34.3 g/dL (32.0-36.0); MEAN CORPUSCULAR VOLUME 88.2 fL (80.0-94.0); MEAN PLATELET VOLUME 8.8 fL (7.4-11.4); MONOCYTES % (AUTO) 14.4 %; NEUTROPHILS % (AUTO) 73.5 %; RED BLOOD COUNT 4.64 10^6/uL (4.70-6.10); RED CELL DISTRIBUTION WIDTH 13.8 % (12.0-15.0); UNCORRECTED WHITE BLOOD COUNT 13.8 x10^3/uL
[2016-11-27 15:43] VITALS: BP 129/78
[2016-11-27 15:47] LABS: PLATELET ESTIMATE, MANUAL NORMAL (130-450,000) (NORMAL); PLATELET MORPHOLOGY NORMAL APPEARANCE (NORMAL)
[2016-11-27 15:48] LABS: NP AUTO DIFFERENTIAL? NO; NP MAN DIFFERENTIAL? YES
== END 2016-11-27 16:14 | disposition home or self-care (01) ==
LOC: EDUNIT# → EDSEX → ED 11:30
DX: G89.18 Other acute postprocedural pain (principal); Z96.652 Presence of left artificial knee joint; E78.00 Pure hypercholesterolemia, unspecified; I10 Essential (primary) hypertension; I48.91 Unspecified atrial fibrillation; Z79.01 Long term (current) use of anticoagulants; N39.0 Urinary tract infection, site not specified
CPT/HCPCS: 36415; 81001; 85025; 85610; 85651; 86140; 93971; 99283; A9270; 81003; 87086

== ENCOUNTER 2016-12-01 06:32 | Outpatient (CLI) | payer MEDICARE, OTHER ==
[2016-12-01 20:53] LABS: BASOPHILS # (AUTO) 0.1 10^3/uL (0.0-0.1); BASOPHILS % (AUTO) 0.9 %; EOSINOPHILS # (AUTO) 0.2 10^3/uL (0.0-0.7); EOSINOPHILS % (AUTO) 1.9 %; HCT - HEMATOCRIT 37.4 % (42.0-52.0); HGB - HEMOGLOBIN 12.6 g/dL (14.0-18.0); LYMPHOCYTES # (AUTO) 1.5 10^3/uL (1.5-3.5); LYMPHOCYTES % (AUTO) 12.2 %; MEAN CORPUSCULAR HEMOGLOBIN 29.8 pg (27.0-31.0); MEAN CORPUSCULAR HGB CONC 33.7 g/dL (32.0-36.0); MEAN CORPUSCULAR VOLUME 88.6 fL (80.0-94.0); MEAN PLATELET VOLUME 8.3 fL (7.4-11.4); MONOCYTES # (AUTO) 1.1 10^3/uL (0.0-1.0); MONOCYTES % (AUTO) 9.2 %; NEUTROPHILS # (AUTO) 9.1 10^3/uL (1.5-6.6); NEUTROPHILS % (AUTO) 75.8 %; NUCLEATED RED BLOOD CELLS AUTO 0.1 /100WBC; RED BLOOD COUNT 4.22 10^6/uL (4.70-6.10); RED CELL DISTRIBUTION WIDTH 13.7 % (12.0-15.0)
[2016-12-01 21:54] LABS: PLATELET ESTIMATE, MANUAL NORMAL (130-450,000) (NORMAL); PLATELET MORPHOLOGY NORMAL APPEARANCE (NORMAL); WBC MORPHOLOGY (MULTIPLE) 1+ SMUDGE CELLS (NORMAL)
== END 2016-12-01 06:33 | disposition home or self-care (01) ==
LOC: LAB.R 06:32
DX: Z96.652 Presence of left artificial knee joint (principal)
CPT/HCPCS: 85025

== ENCOUNTER 2017-04-23 13:29 | Outpatient (CLI) | payer MEDICARE, OTHER | END 2017-04-23 13:30 | disposition home or self-care (01) | LOC: SC 13:29 | PROVIDERS: ATTEND Internal Medicine Pulmonary Disease | DX: G47.33 Obstructive sleep apnea (adult) (pediatric) (principal) | CPT/HCPCS: 99213; G0463; 99212 ==

== ENCOUNTER 2017-05-28 14:10 | Outpatient (CLI) | payer MEDICARE, OTHER | END 2017-05-28 14:11 | disposition home or self-care (01) | LOC: SC 14:10 | PROVIDERS: ATTEND Internal Medicine Pulmonary Disease | DX: G47.33 Obstructive sleep apnea (adult) (pediatric) (principal) | CPT/HCPCS: 99213; G0463; 99212 ==

== ENCOUNTER 2017-06-12 08:00 | Outpatient (CLI) | payer MEDICARE, OTHER ==
[2017-06-12 18:38] LABS: BASOPHILS # (AUTO) 0.1 10^3/uL (0.0-0.1); BASOPHILS % (AUTO) 0.8 %; EOSINOPHILS # (AUTO) 0.1 10^3/uL (0.0-0.7); HGB - HEMOGLOBIN 15.5 g/dL (14.0-18.0); LYMPHOCYTES # (AUTO) 1.1 10^3/uL (1.5-3.5); LYMPHOCYTES % (AUTO) 16.7 %; MEAN CORPUSCULAR HEMOGLOBIN 28.4 pg (27.0-31.0); MEAN CORPUSCULAR HGB CONC 32.2 g/dL (32.0-36.0); MEAN CORPUSCULAR VOLUME 88.1 fL (80.0-94.0); MEAN PLATELET VOLUME 9.7 fL (7.4-11.4); MONOCYTES # (AUTO) 0.9 10^3/uL (0.0-1.0); MONOCYTES % (AUTO) 13.6 %; NEUTROPHILS # (AUTO) 4.4 10^3/uL (1.5-6.6); NEUTROPHILS % (AUTO) 66.9 %; PLT - PLATELET COUNT 197 10^3/uL (130-450); RED BLOOD COUNT 5.46 10^6/uL (4.70-6.10); RED CELL DISTRIBUTION WIDTH 15.4 % (12.0-15.0); WHITE BLOOD COUNT 6.6 x10^3/uL (4.8-10.8)
[2017-06-12 18:58] LABS: ALBUMIN/GLOBULIN RATIO 1.4 (1.0-2.2); ALKALINE PHOSPHATASE 69 IU/L (42-121); ALT ALANINE AMINOTRANSFERASE 17 IU/L (10-60); AST ASPARTATE AMINOTRANSFERASE 25 IU/L (10-42); BILIRUBIN,TOTAL 0.4 mg/dL (0.2-1.0); BUN - BLOOD UREA NITROGEN 22 mg/dL (6-20); CARBON DIOXIDE - CO2 27 mmol/L (21-32); CHLORIDE 106 mmol/L (101-111); CHOL/HDL RATIO 3.7 (<5.0); CHOLESTEROL 173 mg/dL; GFR - MDRD 73 (>89); GLUCOSE 92 mg/dL (70-100); HDL CHOLESTEROL 47 mg/dL; LDL CHOLESTEROL,CALCULATED 108 mg/dL; LDL/HDL RATIO 2.3 (<3.6); SODIUM 139 mmol/L (135-145); TOTAL PROTEIN 6.8 g/dL (6.7-8.2); VLDL CHOLESTEROL 18 mg/dL
== END 2017-06-12 08:01 | disposition home or self-care (01) ==
LOC: LAB.WCP 08:00
PROVIDERS: ATTEND Family Medicine
DX: E78.5 Hyperlipidemia, unspecified (principal); I10 Essential (primary) hypertension
CPT/HCPCS: 36415; 80053; 80061; 83721; 84443; 85025

== ENCOUNTER 2018-01-01 10:44 | Outpatient (CLI) | payer MEDICARE, OTHER ==
[2018-01-01 19:14] LABS: BASOPHILS # (AUTO) 0.1 10^3/uL (0.0-0.1); BASOPHILS % (AUTO) 0.9 %; EOSINOPHILS # (AUTO) 0.2 10^3/uL (0.0-0.7); EOSINOPHILS % (AUTO) 3.2 %; HGB - HEMOGLOBIN 16.6 g/dL (14.0-18.0); LYMPHOCYTES # (AUTO) 0.9 10^3/uL (1.5-3.5); LYMPHOCYTES % (AUTO) 15.1 %; MEAN CORPUSCULAR HGB CONC 33.5 g/dL (32.0-36.0); MEAN CORPUSCULAR VOLUME 89.6 fL (80.0-94.0); MEAN PLATELET VOLUME 9.3 fL (7.4-11.4); MONOCYTES # (AUTO) 0.9 10^3/uL (0.0-1.0); MONOCYTES % (AUTO) 13.9 %; NEUTROPHILS # (AUTO) 4.1 10^3/uL (1.5-6.6); NEUTROPHILS % (AUTO) 66.9 %; PLT - PLATELET COUNT 183 10^3/uL (130-450); RED BLOOD COUNT 5.53 10^6/uL (4.70-6.10); RED CELL DISTRIBUTION WIDTH 14.7 % (12.0-15.0); WHITE BLOOD COUNT 6.1 x10^3/uL (4.8-10.8)
[2018-01-01 19:27] LABS: ALBUMIN 3.8 g/dL (3.2-5.5); ALBUMIN/GLOBULIN RATIO 1.4 (1.0-2.2); ALKALINE PHOSPHATASE 73 IU/L (42-121); ALT ALANINE AMINOTRANSFERASE 24 IU/L (10-60); AST ASPARTATE AMINOTRANSFERASE 29 IU/L (10-42); BUN - BLOOD UREA NITROGEN 14 mg/dL (6-20); CALCIUM 9.5 mg/dL (8.5-10.3); CARBON DIOXIDE - CO2 30 mmol/L (21-32); CHLORIDE 101 mmol/L (101-111); CHOL/HDL RATIO 3.6 (<5.0); CHOLESTEROL 164 mg/dL; GFR - MDRD 73 (>89); GLUCOSE 88 mg/dL (70-100); HDL CHOLESTEROL 46 mg/dL; LDL CHOLESTEROL,CALCULATED 93 mg/dL; SODIUM 137 mmol/L (135-145); TOTAL PROTEIN 6.6 g/dL (6.7-8.2); VLDL CHOLESTEROL 25 mg/dL
[2018-01-01 19:31] LABS: HB2 TOTAL 17.7 g/dL; HEMOGLOBIN A1C 0.64 g/dL; HEMOGLOBIN A1C % 5.5 % (4.6-6.2)
== END 2018-01-01 10:45 | disposition home or self-care (01) ==
LOC: LAB.WCP 10:44
PROVIDERS: ATTEND Family Medicine
DX: I10 Essential (primary) hypertension (principal); R73.01 Impaired fasting glucose; E78.5 Hyperlipidemia, unspecified; I48.91 Unspecified atrial fibrillation
CPT/HCPCS: 36415; 80053; 80061; 83036; 83721; 84443; 85025

== ENCOUNTER 2018-01-17 14:49 | Outpatient (CLI) | payer MEDICARE, OTHER ==
--- NOTE | 2018-01-18 09:14 | Ultrasound Report ---
Reason: NICOTINE DEPENDENCE,CIGARETTES,IN REMISSION Procedure Date: 01/17/2018 Accession Number: [id number] / [id number] Procedure: US - Aorta Screening CPT Code: FULL RESULT: EXAM: AORTIC DOPPLER ULTRASOUND EXAM DATE: 01/17/2018 03:39 PM. CLINICAL HISTORY: Nicotine dependence, cigarettes, in remission. COMPARISON: None. TECHNIQUE: Real-time sonographic imaging of retroperitoneal vascular structures, including color-flow, Doppler flow and spectral analysis was performed by the research physicist. Multiple contracts representative static images were saved for review. FINDINGS: Aorta: The abdominal aorta was adequately visualized. No evidence for abdominal aortic aneurysm. Aorta: Mid: Transverse: 1.9 x 2.3 cm. Distal: Transverse: 2.3 x 2.4 cm. Plaque visualized: Yes. Iliacs: Right Iliac: Transverse: 1.4 x 1.2 cm. Left Iliac: Transverse: 1.5 x 1.3 cm. Iliac Vessels: The visualized proximal common iliac arteries are normal in caliber. Other: None. IMPRESSION: Normal. No abdominal aortic aneurysm. [facility]
== END 2018-01-17 14:50 | disposition home or self-care (01) ==
LOC: DI 14:49
PROVIDERS: ATTEND Family Medicine
DX: Z13.6 Encounter for screening for cardiovascular disorders (principal); F17.211 Nicotine dependence, cigarettes, in remission; Z82.49 Family history of ischemic heart disease and other diseases of the circulatory system
CPT/HCPCS: 76706

== ENCOUNTER 2018-05-29 08:00 | Outpatient (CLI) | payer MEDICARE, OTHER | END 2018-05-29 23:59 | disposition home or self-care (01) | LOC: LAB.WCP 08:00 | PROVIDERS: ATTEND Family Medicine | DX: I48.91 Unspecified atrial fibrillation (principal); Z79.01 Long term (current) use of anticoagulants | CPT/HCPCS: 81025 ==

== ENCOUNTER 2018-06-27 08:00 | Outpatient (CLI) | payer MEDICARE, OTHER ==
[2018-06-27 18:44] LABS: BASOPHILS % (AUTO) 0.4 %; EOSINOPHILS # (AUTO) 0.1 10^3/uL (0.0-0.7); EOSINOPHILS % (AUTO) 1.6 %; HGB - HEMOGLOBIN 16.3 g/dL (14.0-18.0); LYMPHOCYTES # (AUTO) 1.3 10^3/uL (1.5-3.5); LYMPHOCYTES % (AUTO) 20.2 %; MEAN CORPUSCULAR HEMOGLOBIN 29.6 pg (27.0-31.0); MEAN CORPUSCULAR HGB CONC 32.6 g/dL (32.0-36.0); MEAN CORPUSCULAR VOLUME 90.5 fL (80.0-94.0); MEAN PLATELET VOLUME 9.3 fL (7.4-11.4); MONOCYTES # (AUTO) 0.9 10^3/uL (0.0-1.0); MONOCYTES % (AUTO) 14.1 %; NEUTROPHILS # (AUTO) 4.2 10^3/uL (1.5-6.6); NEUTROPHILS % (AUTO) 63.7 %; PLT - PLATELET COUNT 182 10^3/uL (130-450); RED BLOOD COUNT 5.52 10^6/uL (4.70-6.10); RED CELL DISTRIBUTION WIDTH 14.6 % (12.0-15.0); WHITE BLOOD COUNT 6.6 x10^3/uL (4.8-10.8)
[2018-06-27 19:01] LABS: ALBUMIN 3.7 g/dL (3.2-5.5); ALBUMIN/GLOBULIN RATIO 1.4 (1.0-2.2); ALKALINE PHOSPHATASE 55 IU/L (42-121); ALT ALANINE AMINOTRANSFERASE 28 IU/L (10-60); AST ASPARTATE AMINOTRANSFERASE 33 IU/L (10-42); BUN - BLOOD UREA NITROGEN 24 mg/dL (6-20); CALCIUM 9.1 mg/dL (8.5-10.3); CARBON DIOXIDE - CO2 24 mmol/L (21-32); CHLORIDE 104 mmol/L (101-111); CHOLESTEROL 165 mg/dL; CREATININE 1.1 mg/dL (0.6-1.2); GFR - MDRD 65 (>89); GLUCOSE 86 mg/dL (70-100); HDL CHOLESTEROL 41 mg/dL; LDL CHOLESTEROL,CALCULATED 83 mg/dL; SODIUM 140 mmol/L (135-145); TOTAL PROTEIN 6.4 g/dL (6.7-8.2); VLDL CHOLESTEROL 41 mg/dL
[2018-06-27 19:03] LABS: HB2 TOTAL 17.6 g/dL; HEMOGLOBIN A1C 0.68 g/dL; HEMOGLOBIN A1C % 5.7 % (4.6-6.2)
== END 2018-06-27 23:59 | disposition home or self-care (01) ==
LOC: LAB.WCP 08:00
PROVIDERS: ATTEND Family Medicine
DX: R73.01 Impaired fasting glucose (principal); I10 Essential (primary) hypertension
CPT/HCPCS: 36415; 80053; 80061; 83036; 83721; 85025

== ENCOUNTER 2018-09-19 08:00 | Outpatient (CLI) | payer MEDICARE, OTHER | END 2018-09-19 08:01 | disposition home or self-care (01) | LOC: LAB.WCP 08:00 | PROVIDERS: ATTEND Family Medicine | DX: I48.91 Unspecified atrial fibrillation (principal); Z79.01 Long term (current) use of anticoagulants ==

== ENCOUNTER 2018-10-17 08:00 | Outpatient (CLI) | payer MEDICARE, OTHER | END 2018-10-17 23:59 | disposition home or self-care (01) | LOC: LAB.WCP 08:00 | PROVIDERS: ATTEND Family Medicine | DX: I48.91 Unspecified atrial fibrillation (principal) ==

== ENCOUNTER 2018-11-14 08:00 | Outpatient (CLI) | payer MEDICARE, OTHER | END 2018-11-14 23:59 | disposition home or self-care (01) | LOC: LAB.WCP 08:00 | PROVIDERS: ATTEND Family Medicine | DX: I48.91 Unspecified atrial fibrillation (principal); Z79.01 Long term (current) use of anticoagulants ==

== ENCOUNTER 2018-11-28 08:00 | Outpatient (CLI) | payer MEDICARE, OTHER | END 2018-11-28 23:59 | disposition home or self-care (01) | LOC: LAB.WCP 08:00 | PROVIDERS: ATTEND Family Medicine | DX: I48.91 Unspecified atrial fibrillation (principal); Z79.01 Long term (current) use of anticoagulants ==

== ENCOUNTER 2018-12-17 08:00 | Outpatient (CLI) | payer MEDICARE, OTHER | END 2018-12-17 23:59 | disposition home or self-care (01) | LOC: LAB.WCP 08:00 | PROVIDERS: ATTEND Family Medicine | DX: Z79.01 Long term (current) use of anticoagulants (principal); I48.91 Unspecified atrial fibrillation ==

== ENCOUNTER 2018-12-17 12:55 | Outpatient (CLI) | payer MEDICARE, OTHER ==
--- NOTE | 2018-12-17 15:41 | SLEEP CARE CONSULTATION ---
Information from patient questionnaire entered by Evita Wakefield. I have reviewed and concur with the information entered by Evita Wakefield. This document represents the service I personally performed and the decisions made by me, Louis Ruby MD, [facility]. History of Present Illness Previous diagnosis: Moderate, Obstructive Sleep Apnea-Hypopnea Syndrome AHI: 22.5 Reason for CPAP/BiPAP follow up: annual Equipment type: CPAP Equipment obtained from: [employer] Mask style: Full face Prior sleep studies: Yes Year and Where: 2013 [place], [place] HPI additional information: HPI: Mr. Caban returned today with his for follow up of nasal CPAP therapy. He was diagnosed to have moderate obstructive sleep apnea-hypopnea syndrome. The patient gets supplies from [employer]. He wears a ResMed AirTouch F-20 full face mask. He reports using the device nightly and all through the night. The compliance report shows usage in 90 nights out of the past 90 nights, averaging 9 hours a night. He complained of no particular problem with the device such as soreness on the face, dry nose, epistaxis, nasal congestion or headache. He thinks that the pressure of 13 cmH2O is a little too high. On the CPAP therapy he notices improvement in his sleep quality, and that he wakes up feeling fresher in the morning and more awake/alert during the day. The [place] Sleepiness Scale score 3. His notices no snore at all. The average residual AHI is 3.7; and air leak, 1.9 L/min. CPAP Compliance Data - Data Reviewed with Patient Average duration of nightly device use: 8h 58m Compliance rate %: 100 Current pressure setting (cmH2O): 13 Subjective Patient concerns: reports: other (not good for sleeping on side) Initial [place] Sleepiness Scale score: 3 Current [place] Sleepiness Scale score: 3 Allergies and Home Medications Drug allergies reviewed: Yes Home medication list reviewed: Yes Review of Systems Review of systems same as previous: Yes Physical Exam Height: 5 ft 6 in Weight: 270 lb Weight change since last visit: 20 Body Mass Index: 43.5 BMI Classification: Obesity Class 3 Impression and Plan IMPRESSION: 1. Obstructive Sleep Apnea-Hypopnea Syndrome, moderate, with the patient doing well on nasal CPAP therapy. He has excellent compliance and significant clinical improvement. The current pressure appears effective and comfortable. Overall, she is very satisfied with treatment and plans to continue with it long-term. Because the CPAP is now older than the useful life of 5 years, I will order the patient a new one and make it an autoCPAP set betw een 8 and 13 cmH2O. PLAN: 1. Prescription made for an autoCPAP, heated humidifier, and related supplies. 2. Try nasal mask/cushion and a chinstrap. 3. Try to lose weight. 4. Return for follow up after one month on the new machine. I spent 100% of this 20 minute visit face to face with the patient with greater than 50% of this was spent time counseling the patient and coordination of care.
== END 2018-12-17 12:56 | disposition home or self-care (01) ==
LOC: SC 12:55
PROVIDERS: ATTEND Internal Medicine Pulmonary Disease
DX: G47.33 Obstructive sleep apnea (adult) (pediatric) (principal)
CPT/HCPCS: 99213; G0463; 99212

== ENCOUNTER 2019-01-02 08:00 | Outpatient (CLI) | payer MEDICARE, OTHER | END 2019-01-02 23:59 | disposition home or self-care (01) | LOC: LAB.WCP 08:00 | PROVIDERS: ATTEND Family Medicine | DX: Z79.01 Long term (current) use of anticoagulants (principal); I48.91 Unspecified atrial fibrillation ==

== ENCOUNTER 2019-01-29 08:00 | Outpatient (CLI) | payer MEDICARE, OTHER | END 2019-01-29 23:59 | disposition home or self-care (01) | LOC: LAB.WCP 08:00 | PROVIDERS: ATTEND Family Medicine | DX: Z79.01 Long term (current) use of anticoagulants (principal); I48.91 Unspecified atrial fibrillation ==

== ENCOUNTER 2019-02-27 08:00 | Outpatient (CLI) | payer MEDICARE, OTHER | END 2019-02-27 23:59 | disposition home or self-care (01) | LOC: LAB.WCP 08:00 | PROVIDERS: ATTEND Family Medicine | DX: Z79.01 Long term (current) use of anticoagulants (principal); I48.91 Unspecified atrial fibrillation ==

== ENCOUNTER 2019-04-01 13:45 | Outpatient (CLI) | payer MEDICARE, OTHER ==
--- NOTE | 2019-04-01 15:01 | SLEEP CARE CONSULTATION ---
Information from patient questionnaire entered by Chel Barillas. I have reviewed and concur with the information entered by Chel Barillas. This document represents the service I personally performed and the decisions made by me, Louis Ruby MD, [facility]. History of Present Illness Previous diagnosis: Moderate, Obstructive Sleep Apnea-Hypopnea Syndrome AHI: 22.5 Reason for follow up: first compliance after device update Equipment type: CPAP Equipment obtained from: [employer] Mask style: Full face HPI additional information: HPI: Mr. Caban returned today with his for follow up of nasal CPAP therapy. He was diagnosed to have moderate obstructive sleep apnea-hypopnea syndrome long time ago in [place]. The patient recently acquired a new CPAP from [employer]. He wears a ResMed AirTouch F-20 full face mask. He reports using the device nightly and all through the night. The compliance report shows usage in 60 nights out of the past 60 nights, averaging 9 hours a night. He complained of nasal congestion but no particular problem with the device such as soreness on the face, dry nose, epistaxis, or headache. He thinks that the pressure of 8 - 13 cmH2O is a little too low (his old machine was set on 13 cmH2O). On the CPAP therapy he notices improvement in his sleep quality, and that he wakes up feeling fresher in the morning and more awake/alert during the day. The [place] Sleepiness Scale score 4. His notices no snore at all. The average residual AHI is 6.2; and average time in large leak per day is 5 minutes. CPAP Compliance Data - Data Reviewed with Patient Average duration of nightly device use: 8.95 Compliance rate %: 100 (60 days) Current pressure setting (cmH2O): 8-13 Humidity settin Heated hose settin Average residual AHI: 6.2 Average large leak: 5 min 17 sec Subjective Patient concerns: reports: nasal congestion Initial [place] Sleepiness Scale score: 3 Current [place] Sleepiness Scale score: 4 Allergies and Home Medications Drug allergies reviewed: Yes Home medication list reviewed: Yes Allergy and home medication list: Current Medications: warfarin, simvastatin, metoprolol, lisinopril, hydrochlorothiazide Allergies: no known drug allergies Review of Systems Review of systems same as previous: Yes Physical Exam Height: 5 ft 6 in Weight: 270 lb Body Mass Index: 43.5 BMI Classification: Obesity Class 3 Impression and Plan IMPRESSION: 1. Obstructive Sleep Apnea-Hypopnea Syndrome, moderate, with the patient doing well on his new Respironics DreamStation autoCPAP. He has excellent compliance and significant clinical improvement. The current pressure appears slightly ineffective and subjectively too low. Overall, he is very satisfied with treatment and plans to continue with it long-term. Because the residual AHI is slightly high, and he feels that the pressure is too low, I will raise the pressure range to 10 -1 4 cmH2O. PLAN: 1. AutoCPAP set to 10 14 cmH2O via the modem. 2. Increase the heated humidifier setting for nasal congestion (presently he only has it at 1). 3. Try to lose weight. 4. Return for follow up in a year or earlier if there is any problem. I spent 100% of this visit face to face with the patient with greater than 50% of this was spent time counseling the patient and coordination of care.
== END 2019-04-01 13:46 | disposition home or self-care (01) ==
LOC: SC 13:45
PROVIDERS: ATTEND Internal Medicine Pulmonary Disease
DX: G47.33 Obstructive sleep apnea (adult) (pediatric) (principal); E66.9 Obesity, unspecified; Z68.41 Body mass index [BMI] 40.0-44.9, adult
CPT/HCPCS: 99213; G0463; 99212

== ENCOUNTER 2019-04-02 08:00 | Outpatient (CLI) | payer MEDICARE, OTHER | END 2019-04-02 23:59 | disposition home or self-care (01) | LOC: LAB.WCP 08:00 | PROVIDERS: ATTEND Family Medicine | DX: Z79.01 Long term (current) use of anticoagulants (principal); I48.91 Unspecified atrial fibrillation ==

== ENCOUNTER 2019-04-18 08:00 | Outpatient (CLI) | payer MEDICARE, OTHER | END 2019-04-18 23:59 | disposition home or self-care (01) | LOC: LAB.WCP 08:00 | PROVIDERS: ATTEND Family Medicine | DX: I48.91 Unspecified atrial fibrillation (principal); Z79.01 Long term (current) use of anticoagulants ==

== ENCOUNTER 2019-05-08 08:00 | Outpatient (CLI) | payer MEDICARE, OTHER | END 2019-05-08 23:59 | disposition home or self-care (01) | LOC: LAB.WCP 08:00 | PROVIDERS: ATTEND Family Medicine | DX: I48.91 Unspecified atrial fibrillation (principal); Z79.01 Long term (current) use of anticoagulants ==

== ENCOUNTER 2019-07-18 08:00 | Outpatient (CLI) | payer MEDICARE, OTHER | END 2019-07-18 23:59 | disposition home or self-care (01) | LOC: LAB.WCP 08:00 | PROVIDERS: ATTEND Family Medicine | DX: I48.91 Unspecified atrial fibrillation (principal); Z79.01 Long term (current) use of anticoagulants ==

== ENCOUNTER 2019-08-15 08:00 | Outpatient (CLI) | payer MEDICARE, OTHER | END 2019-08-15 23:59 | disposition home or self-care (01) | LOC: LAB.WCP 08:00 | PROVIDERS: ATTEND Family Medicine | DX: I48.91 Unspecified atrial fibrillation (principal); Z79.01 Long term (current) use of anticoagulants ==

== ENCOUNTER 2019-10-09 08:00 | Outpatient (CLI) | payer MEDICARE, OTHER | END 2019-10-09 23:59 | disposition home or self-care (01) | LOC: LAB.WCP 08:00 | PROVIDERS: ATTEND Family Medicine | DX: I48.91 Unspecified atrial fibrillation (principal); Z79.01 Long term (current) use of anticoagulants ==

== ENCOUNTER 2019-11-06 08:00 | Outpatient (CLI) | payer MEDICARE, OTHER | END 2019-11-06 23:59 | disposition home or self-care (01) | LOC: LAB.WCP 08:00 | PROVIDERS: ATTEND Family Medicine | DX: I48.91 Unspecified atrial fibrillation (principal); Z79.01 Long term (current) use of anticoagulants ==

== ENCOUNTER 2019-12-05 08:00 | Outpatient (CLI) | payer MEDICARE, OTHER | END 2019-12-05 23:59 | disposition home or self-care (01) | LOC: LAB.WCP 08:00 | PROVIDERS: ATTEND Family Medicine | DX: Z79.01 Long term (current) use of anticoagulants (principal) ==

== ENCOUNTER 2019-12-19 08:00 | Outpatient (CLI) | payer MEDICARE, OTHER | END 2019-12-19 23:59 | disposition home or self-care (01) | LOC: LAB.WCP 08:00 | PROVIDERS: ATTEND Family Medicine | DX: Z79.01 Long term (current) use of anticoagulants (principal) ==

== ENCOUNTER 2020-01-05 12:59 | Outpatient (CLI) | payer MEDICARE, OTHER ==
[2020-01-05 18:10] LABS: BASOPHILS # (AUTO) 0.1 10^3/uL (0.0-0.1); BASOPHILS % (AUTO) 0.9 %; EOSINOPHILS # (AUTO) 0.3 10^3/uL (0.0-0.7); HGB - HEMOGLOBIN 16.1 g/dL (14.0-18.0); LYMPHOCYTES % (AUTO) 15.1 %; MEAN CORPUSCULAR HEMOGLOBIN 29.8 pg (27.0-31.0); MEAN CORPUSCULAR HGB CONC 32.3 g/dL (32.0-36.0); MEAN CORPUSCULAR VOLUME 92.2 fL (80.0-94.0); MEAN PLATELET VOLUME 11.3 fL (7.4-11.4); MONOCYTES # (AUTO) 0.8 10^3/uL (0.0-1.0); MONOCYTES % (AUTO) 11.8 %; NEUTROPHILS # (AUTO) 4.4 10^3/uL (1.5-6.6); NEUTROPHILS % (AUTO) 66.3 %; PLT - PLATELET COUNT 217 10^3/uL (130-450); RED CELL DISTRIBUTION WIDTH 14.2 % (12.0-15.0); WHITE BLOOD COUNT 6.6 x10^3/uL (4.8-10.8)
[2020-01-05 18:39] LABS: ALBUMIN 3.9 g/dL (3.2-5.5); ALBUMIN/GLOBULIN RATIO 1.3 (1.0-2.2); ALKALINE PHOSPHATASE 57 IU/L (42-121); ALT ALANINE AMINOTRANSFERASE 35 IU/L (10-60); AST ASPARTATE AMINOTRANSFERASE 36 IU/L (10-42); BILIRUBIN,TOTAL 0.8 mg/dL (0.2-1.0); BUN - BLOOD UREA NITROGEN 16 mg/dL (6-20); CALCIUM 9.3 mg/dL (8.5-10.3); CARBON DIOXIDE - CO2 28 mmol/L (21-32); CHLORIDE 100 mmol/L (101-111); CHOL/HDL RATIO 4.4 (<5.0); CHOLESTEROL 179 mg/dL; CREATININE 1.2 mg/dL (0.6-1.2); GLUCOSE 108 mg/dL (70-100); HDL CHOLESTEROL 41 mg/dL; LDL CHOLESTEROL,CALCULATED 93 mg/dL; LDL/HDL RATIO 2.3 (<3.6); SODIUM 138 mmol/L (135-145); TOTAL PROTEIN 6.9 g/dL (6.7-8.2); VLDL CHOLESTEROL 45 mg/dL
[2020-01-05 20:37] LABS: HEMOGLOBIN A1c% 5.6 % (4.27-6.07)
== END 2020-01-05 23:59 | disposition home or self-care (01) ==
LOC: LAB.WCP 12:59
PROVIDERS: ATTEND Family Medicine
DX: I48.91 Unspecified atrial fibrillation (principal); R73.01 Impaired fasting glucose; E78.5 Hyperlipidemia, unspecified; G47.30 Sleep apnea, unspecified; Z87.11 Personal history of peptic ulcer disease
CPT/HCPCS: 36415; 80053; 80061; 83036; 83721; 84443; 85025

== ENCOUNTER 2020-01-27 08:00 | Outpatient (CLI) | payer MEDICARE, OTHER | END 2020-01-27 23:59 | disposition home or self-care (01) | LOC: LAB.WCP 08:00 | PROVIDERS: ATTEND Family Medicine | DX: Z79.01 Long term (current) use of anticoagulants (principal) ==

== ENCOUNTER 2020-02-11 08:00 | Outpatient (CLI) | payer MEDICARE, OTHER | END 2020-02-11 23:59 | disposition home or self-care (01) | LOC: LAB.WCP 08:00 | PROVIDERS: ATTEND Family Medicine | DX: Z79.01 Long term (current) use of anticoagulants (principal) ==

== ENCOUNTER 2020-03-10 08:00 | Outpatient (CLI) | payer MEDICARE, OTHER | END 2020-03-10 23:59 | disposition home or self-care (01) | LOC: LAB.WCP 08:00 | PROVIDERS: ATTEND Nurse Practitioner | DX: Z79.01 Long term (current) use of anticoagulants (principal) ==

== ENCOUNTER 2020-03-29 12:52 | Outpatient (CLI) | payer MEDICARE, OTHER ==
--- NOTE | 2020-03-29 14:55 | SLEEP CARE CONSULTATION ---
Information from patient questionnaire entered by Lauren Owens. I have reviewed and concur with the information entered by Lauren Owens. This document represents the service I personally performed and the decisions made by me, Louis Ruby MD, [facility]. History of Present Illness Service Date and Time: 03/29/2020 1252 Previous diagnosis: Moderate, Obstructive Sleep Apnea-Hypopnea Syndrome AHI: 22.5 Reason for follow up: annual (Last seen 03/2019) Equipment type: CPAP Equipment obtained from: [employer] Mask style: Nasal pillows Prior sleep studies: Yes Year and Where: 2013 [facility] additional information: Mr. Caban returned today for an annual follow up of nasal CPAP therapy. He was diagnosed to have moderate obstructive sleep apnea-hypopnea syndrome long time ago in [place]. The patient recently acquired a new CPAP from [employer]. He now wears a Respironics Wisp nasal mask. He reports using the device nightly and all through the night. The compliance report shows usage in 364 nights out of the past 365 nights, averaging 9 hours a night. He complained of nasal congestion but no particular problem with the device such as soreness on the face, dry nose, epistaxis, or headache. He thinks that the pressure of 10 - 14 cmH2O is a little too low (his old machine was set on 13 cmH2O). On the CPAP therapy he notices improvement in his sleep quality, and that he wakes up feeling fresher in the morning and more awake/alert during the day. The [place] Sleepiness Scale score 4. His notices no snore at all. The average residual AHI is 4.6 (was 6.2); and average time in large leak per day is 4 minutes. Sleep Study - Results Year and Where: 2013 [place], [place] CPAP Compliance Data - Data Reviewed with Patient Average duration of nightly device use: 9 h 2 min Compliance rate %: 98.9 Current pressure setting (cmH2O): 10-14 Humidity settin Heated hose settin Average residual AHI: 4.6 Average large leak: 4 min 34 sec Subjective Missed days of use due to: reports: other (power failure) Patient concerns: reports: nasal congestion Current pressure setting perceived as: comfortable Initial [place] Sleepiness Scale score: 3 (in 2017 ) Current [place] Sleepiness Scale score: 4 Allergies and Home Medications Drug allergies reviewed: Yes Home medication list reviewed: Yes Review of Systems Review of systems same as previous: Yes Physical Exam Height: 5 ft 6 in Weight: 282 lb Weight change since last visit: +10 Body Mass Index: 45.5 BMI Classification: Morbidly Obese Impression and Plan IMPRESSION: 1. Obstructive Sleep Apnea-Hypopnea Syndrome, moderate, with the patient doing well on his new Respironics DreamStation autoCPAP. He has excellent compliance and significant clinical improvement. The current pressure appears effective and comfortable. Overall, he is very satisfied with treatment and plans to continue with it long-term. No adjustment is necessary today. PLAN: 1. Leave AutoCPAP set to 10 14 cmH2O. 2. Try the new Respironics DreamWisp and ResMed N30i nasal mask. 3. Try to lose weight. 4. Return for follow up in a year or earlier if there is any problem. Visit Type: In Office Time Spent with Patient (minutes): 20 Provider Statement: I spent 100% of the Face to Face Visit with the patient with greater than 50% spent counseling the patient and coordination of care.
== END 2020-03-29 12:53 | disposition home or self-care (01) ==
LOC: SC 12:52
PROVIDERS: ATTEND Internal Medicine Pulmonary Disease
DX: G47.33 Obstructive sleep apnea (adult) (pediatric) (principal); E66.01 Morbid (severe) obesity due to excess calories; Z68.42 Body mass index [BMI] 45.0-49.9, adult
CPT/HCPCS: 99213; G0463; 99212

== ENCOUNTER 2020-04-07 08:00 | Outpatient (CLI) | payer MEDICARE, OTHER | END 2020-04-07 23:59 | disposition home or self-care (01) | LOC: LAB.N 08:00 | PROVIDERS: ATTEND Family Medicine | DX: Z79.01 Long term (current) use of anticoagulants (principal) ==

== ENCOUNTER 2020-06-09 08:00 | Outpatient (CLI) | payer MEDICARE, OTHER | END 2020-06-09 23:59 | disposition home or self-care (01) | LOC: LAB.N 08:00 | PROVIDERS: ATTEND Family Medicine | DX: I48.91 Unspecified atrial fibrillation (principal); Z79.01 Long term (current) use of anticoagulants ==

== ENCOUNTER 2020-07-07 08:00 | Outpatient (CLI) | payer MEDICARE, OTHER | END 2020-07-07 23:59 | disposition home or self-care (01) | LOC: LAB.N 08:00 | PROVIDERS: ATTEND Family Medicine | DX: I48.91 Unspecified atrial fibrillation (principal); Z79.01 Long term (current) use of anticoagulants ==

== ENCOUNTER 2020-08-04 08:00 | Outpatient (CLI) | payer MEDICARE, OTHER | END 2020-08-04 23:59 | disposition home or self-care (01) | LOC: LAB.N 08:00 | PROVIDERS: ATTEND Family Medicine | DX: I48.91 Unspecified atrial fibrillation (principal); Z79.01 Long term (current) use of anticoagulants ==

== ENCOUNTER 2020-09-15 08:00 | Outpatient (CLI) | payer MEDICARE, OTHER | END 2020-09-15 23:59 | disposition home or self-care (01) | LOC: LAB.WCP 08:00 | PROVIDERS: ATTEND Family Medicine | DX: I48.91 Unspecified atrial fibrillation (principal); Z79.01 Long term (current) use of anticoagulants ==

== ENCOUNTER 2020-10-06 08:00 | Outpatient (CLI) | payer MEDICARE, OTHER | END 2020-10-06 23:59 | disposition home or self-care (01) | LOC: LAB.WCP 08:00 | PROVIDERS: ATTEND Family Medicine | DX: I48.91 Unspecified atrial fibrillation (principal); Z79.01 Long term (current) use of anticoagulants ==

== ENCOUNTER 2020-11-02 14:39 | Outpatient (CLI) | payer MEDICARE, OTHER ==
--- NOTE | 2020-11-03 10:51 | Ultrasound Report ---
PROCEDURE: Ankle Brachial Index INDICATIONS: PERIPHERAL ARTERIAL OCCLUSIVE DISEASE TECHNIQUE: Ankle-brachial indices were obtained bilaterally and recorded. COMPARISONS: None. FINDINGS: Right ankle brachial index (ALYSHA): 0.8 Left ankle brachial index (ALYSHA): 0.8 Healing potential: Ankle pressures >55 mm Hg in non-diabetics and >80 mm Hg in diabetics are likely to achieve primary h ealing of ischemic foot ulcers. Toe pressures >30 mm Hg are likely to achieve primary healing of ischemic foot ulcers, toe or transme tatarsal amputations. IMPRESSION: Normal bilateral ankle brachial indices. Triphasic waveforms and normal flow velocities in the posterior tibial artery and dorsalis pedis bila terally. Reviewed by: Wilder Dennis MD on 11/03/2020 10:50 AM PDT Approved by: Wilder Dennis MD on 11/03/2020 10:50 AM PDT Station ID: [id number]
== END 2020-11-02 14:40 | disposition home or self-care (01) ==
LOC: DI 14:39
PROVIDERS: ATTEND Family Medicine
DX: I73.9 Peripheral vascular disease, unspecified (principal)
CPT/HCPCS: 93922

== ENCOUNTER 2020-11-03 08:00 | Outpatient (CLI) | payer MEDICARE, OTHER | END 2020-11-03 23:59 | disposition home or self-care (01) | LOC: LAB.N 08:00 | PROVIDERS: ATTEND Family Medicine | DX: I48.91 Unspecified atrial fibrillation (principal); Z79.01 Long term (current) use of anticoagulants ==

== ENCOUNTER 2020-11-09 08:00 | Outpatient (CLI) | payer MEDICARE, OTHER ==
[2020-11-09 18:05] LABS: BILIRUBIN,URINE NEGATIVE (NEGATIVE); GLUCOSE, URINE (UA) NEGATIVE (NEGATIVE); KETONES,URINE (UA) NEGATIVE (NEGATIVE); LEUKOCYTE ESTERASE, URINE NEGATIVE (NEGATIVE); NITRITE,URINE NEGATIVE (NEGATIVE); OCCULT BLOOD,URINE SMALL (NEGATIVE); PH,URINE 5.5 PH (5.0-7.5); PROTEIN,URINE 100 mg/dL (NEGATIVE); UROBILINOGEN,URINE 0.2 (NORMAL) E.U./dL (NORMAL)
[2020-11-09 18:08] LABS: BASOPHILS # (AUTO) 0.1 10^3/uL (0.0-0.1); EOSINOPHILS # (AUTO) 0.2 10^3/uL (0.0-0.7); EOSINOPHILS % (AUTO) 2.9 %; HCT - HEMATOCRIT 50.1 % (42.0-52.0); HGB - HEMOGLOBIN 16.3 g/dL (14.0-18.0); LYMPHOCYTES # (AUTO) 1.1 10^3/uL (1.5-3.5); LYMPHOCYTES % (AUTO) 15.3 %; MEAN CORPUSCULAR HEMOGLOBIN 29.4 pg (27.0-31.0); MEAN CORPUSCULAR HGB CONC 32.5 g/dL (32.0-36.0); MEAN CORPUSCULAR VOLUME 90.3 fL (80.0-94.0); MONOCYTES % (AUTO) 14.4 %; NEUTROPHILS # (AUTO) 4.7 10^3/uL (1.5-6.6); NEUTROPHILS % (AUTO) 65.4 %; PLT - PLATELET COUNT 211 10^3/uL (130-450); RED BLOOD COUNT 5.55 10^6/uL (4.70-6.10); RED CELL DISTRIBUTION WIDTH 14.3 % (12.0-15.0); WHITE BLOOD COUNT 7.1 x10^3/uL (4.8-10.8)
[2020-11-09 18:12] LABS: BACTERIA,URINE Rare /HPF (None Seen); CLARITY,URINE CLEAR (CLEAR); RBC,URINE 0-5 /HPF (0-5); SQUAMOUS EPITHELIAL CELL,UR FEW Squamous (<= Few); WBC,URINE 0-3 /HPF (0-3)
[2020-11-09 18:26] LABS: ALBUMIN 4.1 g/dL (3.2-5.5); ALBUMIN/GLOBULIN RATIO 1.4 (1.0-2.2); ALKALINE PHOSPHATASE 55 IU/L (42-121); ALT ALANINE AMINOTRANSFERASE 25 IU/L (10-60); AST ASPARTATE AMINOTRANSFERASE 24 IU/L (10-42); BILIRUBIN,TOTAL 0.9 mg/dL (0.2-1.0); BUN - BLOOD UREA NITROGEN 22 mg/dL (6-20); CALCIUM 9.7 mg/dL (8.5-10.3); CARBON DIOXIDE - CO2 27 mmol/L (21-32); CHLORIDE 102 mmol/L (101-111); CHOL/HDL RATIO 4.3 (<5.0); CHOLESTEROL 178 mg/dL; CREATININE 1.3 mg/dL (0.6-1.2); GFR - MDRD 54 (>89); GLUCOSE 101 mg/dL (70-100); HDL CHOLESTEROL 41 mg/dL; LDL CHOLESTEROL,CALCULATED 95 mg/dL; LDL/HDL RATIO 2.3 (<3.6); POTASSIUM 4.1 mmol/L (3.5-5.0); SODIUM 140 mmol/L (135-145); TOTAL PROTEIN 7.1 g/dL (6.7-8.2); TRIGLYCERIDES 209 mg/dL; VLDL CHOLESTEROL 42 mg/dL
[2020-11-09 20:13] LABS: ESTIMATED AVERAGE GLUCOSE 120 mg/dL (70-100); HEMOGLOBIN A1c% 5.8 % (4.27-6.07)
== END 2020-11-09 23:59 | disposition home or self-care (01) ==
LOC: LAB.WCP 08:00
PROVIDERS: ATTEND Family Medicine
DX: R73.01 Impaired fasting glucose (principal); E78.5 Hyperlipidemia, unspecified; R60.9 Edema, unspecified; I10 Essential (primary) hypertension
CPT/HCPCS: 36415; 80053; 80061; 81001; 83036; 83721; 85025

== ENCOUNTER 2020-11-17 08:00 | Outpatient (CLI) | payer MEDICARE, OTHER | END 2020-11-17 23:59 | disposition home or self-care (01) | LOC: LAB.WCP 08:00 | PROVIDERS: ATTEND Family Medicine | DX: I48.91 Unspecified atrial fibrillation (principal); Z79.01 Long term (current) use of anticoagulants ==

== ENCOUNTER 2020-12-06 10:52 | Outpatient (CLI) | payer MEDICARE, OTHER ==
[2020-12-06 17:40] LABS: BASOPHILS # (AUTO) 0.1 10^3/uL (0.0-0.1); BASOPHILS % (AUTO) 0.8 %; EOSINOPHILS # (AUTO) 0.2 10^3/uL (0.0-0.7); EOSINOPHILS % (AUTO) 2.3 %; HGB - HEMOGLOBIN 16.2 g/dL (14.0-18.0); LYMPHOCYTES # (AUTO) 1.6 10^3/uL (1.5-3.5); LYMPHOCYTES % (AUTO) 17.9 %; MEAN CORPUSCULAR HEMOGLOBIN 29.7 pg (27.0-31.0); MEAN CORPUSCULAR HGB CONC 33.1 g/dL (32.0-36.0); MEAN CORPUSCULAR VOLUME 89.9 fL (80.0-94.0); MEAN PLATELET VOLUME 12.7 fL (7.4-11.4); MONOCYTES # (AUTO) 1.5 10^3/uL (0.0-1.0); MONOCYTES % (AUTO) 16.1 %; NEUTROPHILS # (AUTO) 5.7 10^3/uL (1.5-6.6); NEUTROPHILS % (AUTO) 62.2 %; PLT - PLATELET COUNT 190 10^3/uL (130-450); RED BLOOD COUNT 5.45 10^6/uL (4.70-6.10); RED CELL DISTRIBUTION WIDTH 13.6 % (12.0-15.0); WHITE BLOOD COUNT 9.1 x10^3/uL (4.8-10.8)
[2020-12-06 18:27] LABS: BILIRUBIN,URINE NEGATIVE (NEGATIVE); GLUCOSE, URINE (UA) NEGATIVE (NEGATIVE); KETONES,URINE (UA) NEGATIVE (NEGATIVE); LEUKOCYTE ESTERASE, URINE NEGATIVE (NEGATIVE); NITRITE,URINE NEGATIVE (NEGATIVE); OCCULT BLOOD,URINE NEGATIVE (NEGATIVE); PROTEIN,URINE NEGATIVE (NEGATIVE); UROBILINOGEN,URINE 0.2 (NORMAL) E.U./dL (NORMAL)
[2020-12-06 18:37] LABS: BACTERIA,URINE Rare /HPF (None Seen); CLARITY,URINE CLEAR (CLEAR); RBC,URINE 0-5 /HPF (0-5); SQUAMOUS EPITHELIAL CELL,UR RARE Squamous (<= Few); WBC,URINE 0-3 /HPF (0-3)
[2020-12-06 18:42] LABS: ALBUMIN 4.6 g/dL (3.2-5.5); ALBUMIN/GLOBULIN RATIO 1.5 (1.0-2.2); ALKALINE PHOSPHATASE 63 IU/L (42-121); ALT ALANINE AMINOTRANSFERASE 31 IU/L (10-60); AST ASPARTATE AMINOTRANSFERASE 21 IU/L (10-42); BILIRUBIN,TOTAL 0.7 mg/dL (0.2-1.0); BUN - BLOOD UREA NITROGEN 74 mg/dL (6-20); CALCIUM 9.6 mg/dL (8.5-10.3); CARBON DIOXIDE - CO2 26 mmol/L (21-32); CHLORIDE 97 mmol/L (101-111); CHOL/HDL RATIO 4.2 (<5.0); CHOLESTEROL 147 mg/dL; CREATININE 2.2 mg/dL (0.6-1.2); GFR - MDRD 29 (>89); GLUCOSE 83 mg/dL (70-100); HDL CHOLESTEROL 35 mg/dL; LDL CHOLESTEROL,CALCULATED 67 mg/dL; LDL/HDL RATIO 1.9 (<3.6); POTASSIUM 3.9 mmol/L (3.5-5.0); SODIUM 137 mmol/L (135-145); TOTAL PROTEIN 7.6 g/dL (6.7-8.2); TRIGLYCERIDES 225 mg/dL; VLDL CHOLESTEROL 45 mg/dL
== END 2020-12-06 23:59 | disposition home or self-care (01) ==
LOC: LAB.WCP 10:52
PROVIDERS: ATTEND Family Medicine
DX: I10 Essential (primary) hypertension (principal); E78.5 Hyperlipidemia, unspecified; R80.9 Proteinuria, unspecified
CPT/HCPCS: 36415; 80053; 80061; 81001; 83721; 85025

== ENCOUNTER 2020-12-08 08:00 | Outpatient (CLI) | payer MEDICARE, OTHER | END 2020-12-08 23:59 | disposition home or self-care (01) | LOC: LAB.N 08:00 | PROVIDERS: ATTEND Family Medicine | DX: I48.91 Unspecified atrial fibrillation (principal); Z79.01 Long term (current) use of anticoagulants ==

== ENCOUNTER 2020-12-22 14:16 | Outpatient (CLI) | payer MEDICARE, OTHER ==
[2020-12-22 18:21] LABS: CALCIUM 9.7 mg/dL (8.5-10.3); CREATININE 1.6 mg/dL (0.6-1.2); POTASSIUM 4.7 mmol/L (3.5-5.0)
== END 2020-12-22 23:59 | disposition home or self-care (01) ==
LOC: LAB.WCP 14:16
PROVIDERS: ATTEND Family Medicine
DX: R60.9 Edema, unspecified (principal)
CPT/HCPCS: 36415; 80048

== ENCOUNTER 2021-01-05 08:00 | Outpatient (CLI) | payer MEDICARE, OTHER | END 2021-01-05 23:59 | disposition home or self-care (01) | LOC: LAB.N 08:00 | PROVIDERS: ATTEND Family Medicine | DX: Z79.01 Long term (current) use of anticoagulants (principal); I48.91 Unspecified atrial fibrillation ==

== ENCOUNTER 2021-02-02 08:00 | Outpatient (CLI) | payer MEDICARE, OTHER | END 2021-02-02 23:59 | disposition home or self-care (01) | LOC: LAB.N 08:00 | PROVIDERS: ATTEND Family Medicine | DX: I48.91 Unspecified atrial fibrillation (principal); Z79.01 Long term (current) use of anticoagulants ==

== ENCOUNTER 2021-02-22 12:56 | Outpatient (CLI) | payer MEDICARE, OTHER ==
[2021-02-22 18:26] LABS: CALCIUM 9.5 mg/dL (8.5-10.3); CREATININE 1.5 mg/dL (0.6-1.2); POTASSIUM 4.1 mmol/L (3.5-5.0)
== END 2021-02-22 23:59 | disposition home or self-care (01) ==
LOC: LAB.WCP 12:56
PROVIDERS: ATTEND Family Medicine
DX: R60.9 Edema, unspecified (principal)
CPT/HCPCS: 36415; 80048

== ENCOUNTER 2021-04-06 08:00 | Outpatient (CLI) | payer MEDICARE, OTHER | END 2021-04-06 23:59 | disposition home or self-care (01) | LOC: LAB.N 08:00 | PROVIDERS: ATTEND Family Medicine | DX: I48.91 Unspecified atrial fibrillation (principal); Z79.01 Long term (current) use of anticoagulants ==

== ENCOUNTER 2021-04-18 12:41 | Outpatient (CLI) | payer MEDICARE, OTHER ==
[2021-04-18 13:44] VITALS: BP 135/85
--- NOTE | 2021-04-18 13:44 | SLEEP CARE CONSULTATION ---
Information from patient questionnaire entered by Anjelica Pollard MA. I have reviewed and concur with the information entered by Anjelica Pollard MA. This document represents the service I personally performed and the decisions made by me, Louis Ruby MD, [facility]. History of Present Illness Service Date and Time: 04/18/2021 1241 Previous diagnosis: Moderate, Obstructive Sleep Apnea-Hypopnea Syndrome AHI: 22.5 Reason for follow up: annual (LAST SEEN 03/2020) Equipment type: CPAP Equipment obtained from: [employer] Mask style: Nasal pillows Prior sleep studies: Yes Year and Where: 2013 [facility] additional information: Mr. Caban returned today for an annual follow up of nasal CPAP therapy. He was diagnosed to have moderate obstructive sleep apnea-hypopnea syndrome long time ago in [place]. The patient recently acquired a new CPAP from [employer]. He n ow wears a Respironics Wisp nasal mask. He reports using the device nightly and all through the night. The compliance report shows usage in 90 nights out of the 90 nights between 08/02 and 10/30/20, averaging 8.4 hours a night. He complained of nasal congestion but no particular problem with the device such as soreness on the face, dry nose, epistaxis, or headache. He thinks that the pressure of 10 - 14 cmH2O is a little too low (his old machine was set on 13 cmH2O). Because of the [place] Respironics recall, he is back using his old ResMed S9 CPAP which is set at 13 cmH2O. He feels the pressure is too high and would like it set at 10 14 cmH2O. On the CPAP therapy he notices improvement in his sleep quality, and that he wakes up feeling fresher in the morning and more awake/alert during the day. The [place] Sleepiness Scale score 7. His notices no snore at all. The average residual AHI is 6.2 (on the Respironics machine); and average time in large leak per day is 4 minutes. Sleep Study - Results Prior sleep studies: Yes Year and Where: 2013 [place], [place] CPAP Compliance Data - Data Reviewed with Patient Average duration of nightly device use: 8 hours 58 minutes Compliance rate %: 100 Current pressure setting (cmH2O): 13-20 Average residual AHI: 3.7 Central apnea: 1.1 Obstructive apnea: 1.1 Average large leak: 13.7 Subjective Patient concerns: reports: nasal congestion, dry mouth, nose, throat Initial [place] Sleepiness Scale score: 3 (in 2017 ) Current [place] Sleepiness Scale score: 7 (2021) Allergies and Home Medications Drug allergies reviewed: Yes Home medication list reviewed: Yes Allergy and home medication list: Allergies No Known Drug Allergies Allergy (Verified 11/27/16 14:08) Review of Systems Review of systems same as previous: Yes Physical Exam Vital signs obtained and entered by: Roman POLLARD CMA MARLENI Blood Pressure: 135/85 (RIGHT, PULSE 69) Cuff size: wrist Heart Rate: 82 O2 Saturation: 99 (WITH PAPER MASK) Height: 5 ft 8 in Weight: 271 lb (W/O CLOTHES) Body Mass Index: 41.2 BMI Classification: Morbidly Obese Impression and Plan IMPRESSION: 1. Obstructive Sleep Apnea-Hypopnea Syndrome, moderate, with the patient doing well on his ResMed S9 machine. He has excellent compliance and significant clinical improvement. We tried to change the pressure on his ResMed memory card but could not. PLAN: 1. The patient is to bring in the ResMed S9 device so that we can change the pressure on it to 10 14 cmH2O. 2. Wait for replacement device from [employer]. 3. Try to lose weight. 4. Return for follow up in a year or earlier if there is any problem. Counseling Topics: Weight control Follow up with Sleep Care in: 1 year Visit Type: In Office Time Spent with Patient (minutes): 15 Provider Statement: I spent 100% of the Face to Face Visit with the patient with greater than 50% spent counseling the patient and coordination of care.
== END 2021-04-18 12:42 | disposition home or self-care (01) ==
LOC: SC 12:41
PROVIDERS: ATTEND Internal Medicine Pulmonary Disease
DX: G47.33 Obstructive sleep apnea (adult) (pediatric) (principal); E66.01 Morbid (severe) obesity due to excess calories; Z68.41 Body mass index [BMI] 40.0-44.9, adult
CPT/HCPCS: 99212; G0463

== ENCOUNTER 2021-05-04 08:00 | Outpatient (CLI) | payer MEDICARE, OTHER | END 2021-05-04 23:59 | disposition home or self-care (01) | LOC: LAB.N 08:00 | PROVIDERS: ATTEND Family Medicine | DX: I48.91 Unspecified atrial fibrillation (principal); Z79.01 Long term (current) use of anticoagulants ==

== ENCOUNTER 2021-06-01 08:00 | Outpatient (CLI) | payer MEDICARE, OTHER | END 2021-06-01 23:59 | disposition home or self-care (01) | LOC: LAB.N 08:00 | PROVIDERS: ATTEND Family Medicine | DX: I48.91 Unspecified atrial fibrillation (principal); Z79.01 Long term (current) use of anticoagulants ==

== ENCOUNTER 2021-06-29 08:00 | Outpatient (CLI) | payer MEDICARE, OTHER | END 2021-06-29 23:59 | disposition home or self-care (01) | LOC: LAB.N 08:00 | PROVIDERS: ATTEND Family Medicine | DX: Z79.01 Long term (current) use of anticoagulants (principal); I48.91 Unspecified atrial fibrillation ==

== ENCOUNTER 2021-07-06 08:00 | Outpatient (CLI) | payer MEDICARE, OTHER | END 2021-07-06 23:59 | disposition home or self-care (01) | LOC: LAB.N 08:00 | PROVIDERS: ATTEND Family Medicine | DX: I48.91 Unspecified atrial fibrillation (principal); Z79.01 Long term (current) use of anticoagulants ==

== ENCOUNTER 2021-07-25 13:32 | Outpatient (CLI) | payer MEDICARE, OTHER ==
[2021-07-25 13:45] LABS: BASOPHILS # (AUTO) 0.1 10^3/uL (0.0-0.1); BASOPHILS % (AUTO) 0.8 %; EOSINOPHILS # (AUTO) 0.2 10^3/uL (0.0-0.7); EOSINOPHILS % (AUTO) 2.5 %; HCT - HEMATOCRIT 47.4 % (42.0-52.0); HGB - HEMOGLOBIN 15.7 g/dL (14.0-18.0); LYMPHOCYTES # (AUTO) 1.1 10^3/uL (1.5-3.5); LYMPHOCYTES % (AUTO) 17.5 %; MEAN CORPUSCULAR HEMOGLOBIN 30.3 pg (27.0-31.0); MEAN CORPUSCULAR HGB CONC 33.1 g/dL (32.0-36.0); MEAN CORPUSCULAR VOLUME 91.3 fL (80.0-94.0); MEAN PLATELET VOLUME 10.3 fL (7.4-11.4); MONOCYTES # (AUTO) 0.8 10^3/uL (0.0-1.0); MONOCYTES % (AUTO) 12.9 %; NEUTROPHILS # (AUTO) 4.3 10^3/uL (1.5-6.6); NEUTROPHILS % (AUTO) 65.2 %; PLT - PLATELET COUNT 205 10^3/uL (130-450); RED BLOOD COUNT 5.19 10^6/uL (4.70-6.10); RED CELL DISTRIBUTION WIDTH 13.2 % (12.0-15.0); WHITE BLOOD COUNT 6.5 x10^3/uL (4.8-10.8)
[2021-07-25 14:08] LABS: ALBUMIN 4.1 g/dL (3.2-5.5); ALBUMIN/GLOBULIN RATIO 1.4 (1.0-2.2); ALKALINE PHOSPHATASE 59 IU/L (42-121); ALT ALANINE AMINOTRANSFERASE 18 IU/L (10-60); AST ASPARTATE AMINOTRANSFERASE 20 IU/L (10-42); BUN - BLOOD UREA NITROGEN 23 mg/dL (6-20); CALCIUM 9.5 mg/dL (8.5-10.3); CARBON DIOXIDE - CO2 28 mmol/L (21-32); CHLORIDE 101 mmol/L (101-111); CHOL/HDL RATIO 4.2 (<5.0); CHOLESTEROL 166 mg/dL; CREATININE 1.5 mg/dL (0.6-1.2); GFR - MDRD 45 (>89); GLUCOSE 98 mg/dL (70-100); HDL CHOLESTEROL 40 mg/dL; LDL CHOLESTEROL,CALCULATED 89 mg/dL; LDL/HDL RATIO 2.2 (<3.6); POTASSIUM 3.9 mmol/L (3.5-5.0); SODIUM 140 mmol/L (135-145); TOTAL PROTEIN 7.1 g/dL (6.7-8.2); TRIGLYCERIDES 184 mg/dL; VLDL CHOLESTEROL 37 mg/dL
[2021-07-25 20:36] LABS: ESTIMATED AVERAGE GLUCOSE 117 mg/dL (70-100); HEMOGLOBIN A1c% 5.7 % (4.27-6.07)
== END 2021-07-25 13:33 | disposition home or self-care (01) ==
LOC: LAB 13:32
PROVIDERS: ATTEND Family Medicine
DX: N18.31 Chronic kidney disease, stage 3a (principal); E78.5 Hyperlipidemia, unspecified; R73.01 Impaired fasting glucose
CPT/HCPCS: 36415; 80053; 80061; 83036; 83721; 85025

== ENCOUNTER 2021-08-15 08:00 | Outpatient (CLI) | payer MEDICARE, OTHER | END 2021-08-15 08:01 | disposition home or self-care (01) | LOC: LAB.WCP 08:00 | PROVIDERS: ATTEND Nurse Practitioner Family | DX: I48.91 Unspecified atrial fibrillation (principal); Z79.01 Long term (current) use of anticoagulants ==

== ENCOUNTER 2021-08-24 13:36 | Outpatient (CLI) | payer MEDICARE, OTHER ==
--- NOTE | 2021-08-24 15:22 | Ultrasound Report ---
PROCEDURE: Duplex Ext Veins Bilateral INDICATIONS: Peripheral vascular disease. TECHNIQUE: Real-time imaging, as well as color and pulse Doppler interrogation, were performed of the deep veins of both legs from the inguinal ligament to the popliteal fossa. COMPARISON: None FINDINGS: The deep veins of the right left lower extremity are normally compressible, and free of in traluminal thrombus. Color and pulse Doppler demonstrate normal phasic intravascular flow in the jennifer p veins of the right and left lower extremities. There is normal augmentation response to distal com pression maneuver in the deep veins of the right and left lower extremity. IMPRESSION: No evidence of deep vein thrombosis involving either the right or left lower extremities. Reviewed by: Risa Bailey MD, PhD on 08/24/2021 3:20 PM PDT Approved by: Risa Bailey MD, PhD on 08/24/2021 3:20 PM PDT Station ID: [id number]
--- NOTE | 2021-08-24 19:58 | Ultrasound Report ---
PROCEDURE: Duplex Lwr Ext Arterial Bilat INDICATIONS: PERIPHERAL ARTERIAL OCCLUSIVE DISEASE, EDEMA TECHNIQUE: Color and pulse Doppler interrogation was performed of both lower extremity arterial systems, with im age documentation. COMPARISON: Ankle brachial indices dated 11/02/2020 FINDINGS: Right lower extremity: Common femoral artery: 45.9 cm/sec, with triphasic flow. Deep femoral artery: 51.5 cm/sec, with triphasic flow. Proximal superficial femoral artery: 72.0 cm/sec, with triphasic flow. Mid superficial femoral artery: 62.1 cm/sec, with triphasic flow. Distal superficial femoral artery: 62.1 cm/sec, with triphasic flow. Popliteal artery: 38.2 cm/sec, with triphasic flow. Posterior tibial artery: 61.2 cm/sec, with triphasic flow. Anterior tibial artery/dorsalis pedis: 72.9 cm/sec, with triphasic flow. Blair-scale imaging description: Mild plaque. No significant stenosis. Left lower extremity: Common femoral artery: 53.5 cm/sec, with triphasic flow. Deep femoral artery: 35.7 cm/sec, with triphasic flow. Proximal superficial femoral artery: 73.7 cm/sec, with triphasic flow. Mid superficial femoral artery: 49.7 cm/sec, with triphasic flow. Distal superficial femoral artery: 55.2 cm/sec, with triphasic flow. Popliteal artery: 34.3 cm/sec, with triphasic flow. Posterior tibial artery: 60.6 cm/sec, with triphasic flow. Anterior tibial artery/dorsalis pedis: 59.1 cm/sec, with triphasic flow. Blair-scale imaging description: Mild plaque. No significant stenosis. IMPRESSION: Mild bilateral lower extremity arterial plaque. No hemodynamically significant stenosis. Normal triph asic waveforms. Reviewed by: Drake Arroyo MD on 08/24/2021 7:56 PM PDT Approved by: Drake Arroyo MD on 08/24/2021 7:56 PM PDT Station ID: [id number]
== END 2021-08-24 13:37 | disposition home or self-care (01) ==
LOC: DI 13:36
PROVIDERS: ATTEND Family Medicine
DX: I70.203 Unspecified atherosclerosis of native arteries of extremities, bilateral legs (principal)
CPT/HCPCS: 93925; 93970

== ENCOUNTER → 2021-08-29 | Outpatient (CLI) | payer MEDICARE, OTHER | LOC: LAB.WCP 08:00 | PROVIDERS: ATTEND Nurse Practitioner Family | DX: I48.91 Unspecified atrial fibrillation (principal); Z79.01 Long term (current) use of anticoagulants ==

== ENCOUNTER 2021-09-19 14:10 | Outpatient (CLI) | payer MEDICARE, OTHER ==
[2021-09-19 18:25] LABS: URIC ACID 7.9 mg/dL (2.6-7.2)
[2021-09-19 18:31] LABS: CRP - C-REACTIVE PROTEIN < 1.0 mg/dL (0-1.0)
[2021-09-19 18:37] LABS: THYROID STIMULATING HORMONE 3.32 uIU/mL (0.34-5.60)
[2021-09-21 14:08] LABS: A/G RATIO 1.2 (0.7-1.7); ALBUMIN 3.5 g/dL (2.9-4.4); ALPHA-1-GLOBULIN 0.3 g/dL (0.0-0.4); ALPHA-2-GLOBULIN 0.9 g/dL (0.4-1.0); GAMMA GLOBULIN 0.8 g/dL (0.4-1.8); GLOBULIN, TOTAL 2.9 g/dL (2.2-3.9); PROTEIN TOTAL 6.4 g/dL (6.0-8.5)
== END 2021-09-19 14:11 | disposition home or self-care (01) ==
LOC: LAB.N 14:10
PROVIDERS: ATTEND Family Medicine
DX: G62.9 Polyneuropathy, unspecified (principal); N18.31 Chronic kidney disease, stage 3a; Z79.01 Long term (current) use of anticoagulants; I48.91 Unspecified atrial fibrillation
CPT/HCPCS: 36415; 82607; 84155; 84165; 84443; 84550; 86140

== ENCOUNTER 2021-11-16 08:00 | Outpatient (CLI) | payer MEDICARE, OTHER | END 2021-11-16 23:59 | disposition home or self-care (01) | LOC: LAB.N 08:00 | PROVIDERS: ATTEND Nurse Practitioner Family | DX: I48.91 Unspecified atrial fibrillation (principal); Z79.01 Long term (current) use of anticoagulants ==

== ENCOUNTER → 2021-12-14 | Outpatient (CLI) | payer MEDICARE, OTHER | LOC: LAB.N 08:00 | PROVIDERS: ATTEND Nurse Practitioner Family | DX: Z79.01 Long term (current) use of anticoagulants (principal); I48.91 Unspecified atrial fibrillation ==

== ENCOUNTER 2022-01-11 08:00 | Outpatient (CLI) | payer MEDICARE, OTHER | END 2022-01-11 23:59 | disposition home or self-care (01) | LOC: LAB.WCP 08:00 | PROVIDERS: ATTEND Nurse Practitioner Family | DX: Z79.01 Long term (current) use of anticoagulants (principal); I48.91 Unspecified atrial fibrillation ==

== ENCOUNTER 2022-02-08 08:00 | Outpatient (CLI) | payer MEDICARE, OTHER | END 2022-02-08 08:01 | disposition home or self-care (01) | LOC: LAB.WCP 08:00 | PROVIDERS: ATTEND Nurse Practitioner Family | DX: Z79.01 Long term (current) use of anticoagulants (principal); I48.91 Unspecified atrial fibrillation ==

== ENCOUNTER 2022-03-27 10:27 | Outpatient (CLI) | payer MEDICARE, OTHER ==
[2022-03-27 10:42] LABS: BASOPHILS # (AUTO) 0.1 10^3/uL (0.0-0.1); BASOPHILS % (AUTO) 0.9 %; EOSINOPHILS # (AUTO) 0.6 10^3/uL (0.0-0.7); EOSINOPHILS % (AUTO) 7.4 %; HGB - HEMOGLOBIN 16.2 g/dL (14.0-18.0); LYMPHOCYTES # (AUTO) 1.5 10^3/uL (1.5-3.5); LYMPHOCYTES % (AUTO) 19.3 %; MEAN CORPUSCULAR HEMOGLOBIN 29.3 pg (27.0-31.0); MEAN CORPUSCULAR HGB CONC 32.4 g/dL (32.0-36.0); MEAN CORPUSCULAR VOLUME 90.4 fL (80.0-94.0); MEAN PLATELET VOLUME 9.7 fL (7.4-11.4); MONOCYTES # (AUTO) 0.9 10^3/uL (0.0-1.0); MONOCYTES % (AUTO) 11.6 %; NEUTROPHILS # (AUTO) 4.7 10^3/uL (1.5-6.6); NEUTROPHILS % (AUTO) 59.7 %; PLT - PLATELET COUNT 178 10^3/uL (130-450); RED BLOOD COUNT 5.53 10^6/uL (4.70-6.10); RED CELL DISTRIBUTION WIDTH 13.7 % (12.0-15.0); WHITE BLOOD COUNT 7.9 x10^3/uL (4.8-10.8)
[2022-03-27 11:05] LABS: ALBUMIN 4.1 g/dL (3.2-5.5); ALBUMIN/GLOBULIN RATIO 1.3 (1.0-2.2); ALKALINE PHOSPHATASE 62 IU/L (42-121); ALT ALANINE AMINOTRANSFERASE 20 IU/L (10-60); AST ASPARTATE AMINOTRANSFERASE 21 IU/L (10-42); BILIRUBIN,TOTAL 0.8 mg/dL (0.2-1.0); BUN - BLOOD UREA NITROGEN 30 mg/dL (6-20); CALCIUM 9.4 mg/dL (8.5-10.3); CARBON DIOXIDE - CO2 29 mmol/L (21-32); CHLORIDE 101 mmol/L (101-111); CHOL/HDL RATIO 4.5 (<5.0); CHOLESTEROL 176 mg/dL; CREATININE 1.3 mg/dL (0.6-1.2); GFR - MDRD 53 (>89); GLUCOSE 102 mg/dL (70-100); HDL CHOLESTEROL 39 mg/dL; LDL CHOLESTEROL,CALCULATED 100 mg/dL; LDL/HDL RATIO 2.6 (<3.6); POTASSIUM 3.8 mmol/L (3.5-5.0); SODIUM 140 mmol/L (135-145); TOTAL PROTEIN 7.2 g/dL (6.7-8.2); TRIGLYCERIDES 185 mg/dL; VLDL CHOLESTEROL 37 mg/dL
[2022-03-27 11:13] LABS: THYROID STIMULATING HORMONE 4.35 uIU/mL (0.34-5.60)
[2022-03-27 11:43] LABS: ESTIMATED AVERAGE GLUCOSE 117 mg/dL (70-100); HEMOGLOBIN A1c% 5.7 % (4.27-6.07)
== END 2022-03-27 10:28 | disposition home or self-care (01) ==
LOC: LAB 10:27
PROVIDERS: ATTEND Nurse Practitioner Family
DX: I12.9 Hypertensive chronic kidney disease with stage 1 through stage 4 chronic kidney disease, or unspecified chronic kidney disease (principal); N18.32 Chronic kidney disease, stage 3b; E66.01 Morbid (severe) obesity due to excess calories; E78.5 Hyperlipidemia, unspecified; I48.91 Unspecified atrial fibrillation
CPT/HCPCS: 36415; 80053; 80061; 83036; 83721; 84443; 85025

== ENCOUNTER 2022-04-12 08:00 | Outpatient (CLI) | payer MEDICARE, OTHER | END 2022-04-12 23:59 | disposition home or self-care (01) | LOC: LAB.WCP 08:00 | PROVIDERS: ATTEND Nurse Practitioner Family | DX: Z79.01 Long term (current) use of anticoagulants (principal); I48.91 Unspecified atrial fibrillation ==

== ENCOUNTER 2022-05-10 08:00 | Outpatient (CLI) | payer MEDICARE, OTHER | END 2022-05-10 23:59 | disposition home or self-care (01) | LOC: LAB.N 08:00 | PROVIDERS: ATTEND Nurse Practitioner Family | DX: Z79.01 Long term (current) use of anticoagulants (principal); I48.91 Unspecified atrial fibrillation ==

== ENCOUNTER 2022-05-15 13:23 | Outpatient (CLI) | payer MEDICARE, OTHER ==
[2022-05-15 13:56] VITALS: BP 132/76
--- NOTE | 2022-05-15 13:56 | SLEEP CARE CONSULTATION ---
Information from patient questionnaire entered by Lizette Muñiz LPN. I have reviewed and concur with the information entered by Lizette Muñiz LPN. This document represents the service I personally performed and the decisions made by me, Louis Ruby MD, [facility]. History of Present Illness Service Date and Time: 05/15/2022 1323 Previous diagnosis: Moderate, Obstructive Sleep Apnea-Hypopnea Syndrome AHI: 22.5 Reason for follow up: annual (LAST SEEN 04/13/2021) Equipment type: CPAP Equipment obtained from: [employer] Mask style: Nasal pillows Prior sleep studies: Yes Year and Where: 2013 [place], [place] HPI additional information: Mr. Caban returned today for an annual follow up of nasal CPAP therapy. He was diagnosed to have moderate obstructive sleep apnea-hypopnea syndrome long time ago in [place] ([facility]). The patient gets his supplies from [employer]. He now wears a Respironics Wisp nasal mask. He reports using the device nightly and all through the night. The compliance report shows usage in 177 nights out of the 180 nights, averaging 7.8 hours a night. He complained of nasal congestion but no particular problem with the device such as soreness on the face, dry nose, epistaxis, or headache. He thinks that the pressure of 10 - 14 cmH2O is a little too low (his old machine was set on 13 cmH2O). He feels the set at 10 14 cmH2O is comfortable. On the CPAP therapy he notices improvement in his sleep quality, and that he wakes up feeling fresher in the morning and more awake/alert during the day. The [place] Sleepiness Scale score 6. The average residual AHI is 5.4 ; and average time in large leak per day is 16 minutes. He also has a ResMed S9 autoset CPAP as a backup. His original [employer] DreamStation autoCPAP the he returned to the prior authorization nurse was over 5 years old. Sleep Study - Results Prior sleep studies: Yes Year and Where: 2013 [place], [place] CPAP Compliance Data - Data Reviewed with Patient Average duration of nightly device use: 7hrs 46mins Compliance rate %: 98.3 Current pressure setting (cmH2O): 10-14 Average residual AHI: 5.4 Subjective Patient concerns: reports: nasal congestion Current pressure setting perceived as: comfortable Initial [place] Sleepiness Scale score: 3 (in 2017 ) Current [place] Sleepiness Scale score: 6 (05/15/22) Allergies and Home Medications Allergy and home medication list: Allergies No Known Drug Allergies Allergy (Verified 11/27/16 14:08) Physical Exam Vital signs obtained and entered by: LIZETTE Meek LPN Blood Pressure: 132/76 Cuff size: wrist Heart Rate: 78 O2 Saturation: 96 Height: 5 ft 8 in Weight: 603 lb 10.01 oz Body Mass Index: 91.7 BMI Classification: Morbidly Obese Impression and Plan IMPRESSION: 1. Obstructive Sleep Apnea-Hypopnea Syndrome, moderate, with the patient doing well on his ResMed S9 machine. He continues to have excellent compliance and significant clinical improvement. The pressure is slightly ineffective. Because the CPAP is now older than the useful life of 5 years, I will order the patient a new one and make it an autoCPAP set between 10 and 15 cmH2O. PLAN: 1. Prescription made for an autoCPAP, heated humidifier, and related supplies through [employer]. 2. Try to lose weight. 3. Return for follow up after one month of using the CPAP. Counseling Topics: Weight control Prescriptions: Auto CPAP Follow up with Sleep Care in: 1-2 months Visit Type: In Office Time Spent with Patient (minutes): 15 Provider Statement: I spent 100% of the Face to Face Visit with the patient with greater than 50% spent counseling the patient and coordination of care.
== END 2022-05-15 13:24 | disposition home or self-care (01) ==
LOC: SC 13:23
PROVIDERS: ATTEND Internal Medicine Pulmonary Disease
DX: G47.33 Obstructive sleep apnea (adult) (pediatric) (principal); E66.01 Morbid (severe) obesity due to excess calories; Z68.45 Body mass index [BMI] 70 or greater, adult
CPT/HCPCS: 99212; G0463

== ENCOUNTER 2022-07-12 08:00 | Outpatient (CLI) | payer MEDICARE, OTHER | END 2022-07-12 23:59 | disposition home or self-care (01) | LOC: LAB.WCP 08:00 | PROVIDERS: ATTEND Nurse Practitioner Family | DX: I48.91 Unspecified atrial fibrillation (principal); Z79.01 Long term (current) use of anticoagulants ==

== ENCOUNTER 2022-10-04 10:48 | Outpatient (CLI) | payer MEDICARE, OTHER ==
[2022-10-04 11:05] LABS: BASOPHILS # (AUTO) 0.1 10^3/uL (0.0-0.1); EOSINOPHILS # (AUTO) 0.2 10^3/uL (0.0-0.7); EOSINOPHILS % (AUTO) 3.1 %; HCT - HEMATOCRIT 47.6 % (42.0-52.0); HGB - HEMOGLOBIN 15.7 g/dL (14.0-18.0); LYMPHOCYTES # (AUTO) 1.3 10^3/uL (1.5-3.5); LYMPHOCYTES % (AUTO) 19.7 %; MEAN CORPUSCULAR HEMOGLOBIN 29.3 pg (27.0-31.0); MEAN PLATELET VOLUME 10.2 fL (7.4-11.4); MONOCYTES % (AUTO) 14.5 %; NEUTROPHILS # (AUTO) 4.1 10^3/uL (1.5-6.6); NEUTROPHILS % (AUTO) 60.7 %; PLT - PLATELET COUNT 179 10^3/uL (130-450); RED BLOOD COUNT 5.35 10^6/uL (4.70-6.10); RED CELL DISTRIBUTION WIDTH 14.8 % (12.0-15.0); WHITE BLOOD COUNT 6.7 x10^3/uL (4.8-10.8)
[2022-10-04 11:48] LABS: ALBUMIN/GLOBULIN RATIO 1.5 (1.0-2.2); BILIRUBIN,TOTAL 0.6 mg/dL (0.2-1.0); CALCIUM 9.8 mg/dL (8.5-10.3); CREATININE 1.4 mg/dL (0.6-1.3); POTASSIUM 3.9 mmol/L (3.5-4.5); TOTAL PROTEIN 6.6 g/dL (6.4-8.9)
== END 2022-10-04 10:49 | disposition home or self-care (01) ==
LOC: LAB 10:48
PROVIDERS: ATTEND Nurse Practitioner Family
DX: I12.9 Hypertensive chronic kidney disease with stage 1 through stage 4 chronic kidney disease, or unspecified chronic kidney disease (principal); R60.9 Edema, unspecified; I48.91 Unspecified atrial fibrillation; E78.5 Hyperlipidemia, unspecified
CPT/HCPCS: 36415; 80053; 85025

== ENCOUNTER 2023-02-28 08:00 | Outpatient (CLI) | payer MEDICARE, OTHER | END 2023-02-28 08:01 | disposition home or self-care (01) | LOC: LAB.N 08:00 | PROVIDERS: ATTEND Nurse Practitioner Family | DX: I48.91 Unspecified atrial fibrillation (principal); Z79.01 Long term (current) use of anticoagulants ==

== ENCOUNTER 2023-04-18 13:56 | Outpatient (CLI) | payer MEDICARE, OTHER ==
[2023-04-18 17:44] LABS: BASOPHILS # (AUTO) 0.1 10^3/uL (0.0-0.1); BASOPHILS % (AUTO) 0.9 %; EOSINOPHILS # (AUTO) 0.2 10^3/uL (0.0-0.7); EOSINOPHILS % (AUTO) 3.3 %; HCT - HEMATOCRIT 50.3 % (42.0-52.0); HGB - HEMOGLOBIN 16.5 g/dL (14.0-18.0); MEAN CORPUSCULAR HEMOGLOBIN 29.7 pg (27.0-31.0); MEAN CORPUSCULAR HGB CONC 32.8 g/dL (32.0-36.0); MEAN CORPUSCULAR VOLUME 90.5 fL (80.0-94.0); MEAN PLATELET VOLUME 11.2 fL (7.4-11.4); MONOCYTES # (AUTO) 0.9 10^3/uL (0.0-1.0); MONOCYTES % (AUTO) 13.7 %; NEUTROPHILS # (AUTO) 4.6 10^3/uL (1.5-6.6); NEUTROPHILS % (AUTO) 66.1 %; PLT - PLATELET COUNT 189 10^3/uL (130-450); RED BLOOD COUNT 5.56 10^6/uL (4.70-6.10); RED CELL DISTRIBUTION WIDTH 13.4 % (12.0-15.0); WHITE BLOOD COUNT 6.9 x10^3/uL (4.8-10.8)
[2023-04-18 18:31] LABS: THYROID STIMULATING HORMONE 2.59 uIU/mL (0.34-5.60)
[2023-04-18 18:35] LABS: ALBUMIN 4.1 g/dL (3.2-5.5); ALBUMIN/GLOBULIN RATIO 1.5 (1.0-2.2); ALKALINE PHOSPHATASE 58 IU/L (42-121); ALT ALANINE AMINOTRANSFERASE 15 IU/L (10-60); AST ASPARTATE AMINOTRANSFERASE 17 IU/L (10-42); BILIRUBIN,TOTAL 0.8 mg/dL (0.2-1.0); BUN - BLOOD UREA NITROGEN 20 mg/dL (6-20); CALCIUM 9.9 mg/dL (8.5-10.3); CARBON DIOXIDE - CO2 29 mmol/L (21-32); CHLORIDE 102 mmol/L (101-111); CHOL/HDL RATIO 3.9 (<5.0); CHOLESTEROL 153 mg/dL; CREATININE 1.4 mg/dL (0.6-1.3); GFR - MDRD 49 (>89); GLUCOSE 102 mg/dL (74-104); HDL CHOLESTEROL 39 mg/dL; LDL CHOLESTEROL,CALCULATED 80 mg/dL; LDL/HDL RATIO 2.1 (<3.6); POTASSIUM 3.7 mmol/L (3.5-4.5); SODIUM 140 mmol/L (135-145); TOTAL PROTEIN 6.8 g/dL (6.4-8.9); TRIGLYCERIDES 172 mg/dL (48-352); VLDL CHOLESTEROL 34 mg/dL
[2023-04-18 20:25] LABS: ESTIMATED AVERAGE GLUCOSE 123 mg/dL (70-100); HEMOGLOBIN A1c% 5.9 % (4.27-6.07)
== END 2023-04-18 13:57 | disposition home or self-care (01) ==
LOC: LAB.N 13:56
PROVIDERS: ATTEND Nurse Practitioner Family
DX: I12.9 Hypertensive chronic kidney disease with stage 1 through stage 4 chronic kidney disease, or unspecified chronic kidney disease (principal); N18.31 Chronic kidney disease, stage 3a; R73.01 Impaired fasting glucose; E78.5 Hyperlipidemia, unspecified
CPT/HCPCS: 36415; 80053; 80061; 83036; 83721; 84443; 85025

== ENCOUNTER → 2023-04-18 | Outpatient (CLI) | payer MEDICARE, OTHER | LOC: LAB.WCP 08:00 | PROVIDERS: ATTEND Nurse Practitioner Family | DX: I48.91 Unspecified atrial fibrillation (principal); Z79.01 Long term (current) use of anticoagulants ==

== ENCOUNTER 2023-05-09 08:00 | Outpatient (CLI) | payer MEDICARE, OTHER | END 2023-05-09 08:01 | disposition home or self-care (01) | LOC: LAB.N 08:00 | PROVIDERS: ATTEND Nurse Practitioner Family | DX: I48.91 Unspecified atrial fibrillation (principal); Z79.01 Long term (current) use of anticoagulants ==

== ENCOUNTER 2023-05-23 08:00 | Outpatient (CLI) | payer MEDICARE, OTHER | END 2023-05-23 08:01 | disposition home or self-care (01) | LOC: LAB.WCP 08:00 | PROVIDERS: ATTEND Nurse Practitioner Family | DX: I48.91 Unspecified atrial fibrillation (principal); Z79.01 Long term (current) use of anticoagulants ==

== ENCOUNTER 2023-06-06 08:00 | Outpatient (CLI) | payer MEDICARE, OTHER | END 2023-06-06 08:01 | disposition home or self-care (01) | LOC: LAB.WCP 08:00 | PROVIDERS: ATTEND Nurse Practitioner Family | DX: I48.91 Unspecified atrial fibrillation (principal); Z79.01 Long term (current) use of anticoagulants ==

== ENCOUNTER 2023-06-14 14:46 | Outpatient (CLI) | payer MEDICARE, OTHER | END 2023-06-14 14:47 | disposition home or self-care (01) | LOC: DI 14:46 | PROVIDERS: ATTEND Nurse Practitioner Family | DX: I48.91 Unspecified atrial fibrillation (principal); I13.10 Hypertensive heart and chronic kidney disease without heart failure, with stage 1 through stage 4 chronic kidney disease, or unspecified chronic kidney disease; N18.31 Chronic kidney disease, stage 3a; I87.8 Other specified disorders of veins; E66.01 Morbid (severe) obesity due to excess calories; Z79.01 Long term (current) use of anticoagulants | CPT/HCPCS: 93307 ==

== ENCOUNTER 2023-08-29 08:00 | Outpatient (CLI) | payer MEDICARE, OTHER | END 2023-08-29 23:59 | disposition home or self-care (01) | LOC: LAB.WCP 08:00 | PROVIDERS: ATTEND Nurse Practitioner Family | DX: I48.91 Unspecified atrial fibrillation (principal); Z79.01 Long term (current) use of anticoagulants ==